=== PATIENT | female | born 1930 | race Caucasian/White ===

== ENCOUNTER → 2016-12-06 | Outpatient (CLI) | payer MEDICARE ==
[~2016-12-06] MED LIST: ASPI325T PO; CARA1TAB2 PO; CYMB60CA3 PO; LIPI80TA PO; LOSA100T36 PO; MELO15TA4 PO; MIRA33504 PO; NEXI40CA PO; POTA10CA PO; TRAM50TA2 PO
--- NOTE | 2016-12-07 21:55 | REP ---
PA and lateral chest 12/06/2016 Indication: Cough, shortness of breath Comparison: PA and lateral chest 09/03/2016 Findings: The cardiomediastinal silhouette is of normal size. There is tortuosity and ectasia of the thoracic aorta with atherosclerotic changes in the region of the aortic knob. The lungs are without focal consolidation , alveolar infiltrate or pleural effusion and there is however a small amount of bibasilar fibrotic scarring. Moderate degenerative changes are present within the lumbar spine. Surgical clips are present within the epigastric region Impression: COPD with ectatic thoracic aorta with atherosclerotic changes. No acute cardiopulmonary process. Bibasilar fibrotic scarring Signed by Kenia Joseph MD 12/07/2016 09:47 P
== END ==
LOC: M LRY 14:08
PROVIDERS: ATTEND Physician Assistant
DX: J44.9 Chronic obstructive pulmonary disease, unspecified (principal); J98.4 Other disorders of lung
CPT/HCPCS: 71020; 94640; G0463

== ENCOUNTER → 2017-02-04 | Outpatient (REF) | payer MEDICARE ==
[2017-02-04 11:52] LABS: MEAN CORPUSCULAR HEMOGLOBIN 27.6 pg (27.0-33.0); MEAN CORPUSCULAR HGB CONC 32.9 g/dl (32.0-36.5); MEAN CORPUSCULAR VOLUME 83.9 fl (80.0-96.0); RED CELL DISTRIBUTION WIDTH 15.3 % (11.5-14.5); WHITE BLOOD COUNT 6.8 K/mm3 (4.0-10.0)
[2017-02-04 12:04] LABS: ALBUMIN 3.5 GM/DL (3.2-5.2); ALBUMIN/GLOBULIN RATIO 1.17 (1.00-1.93); BILIRUBIN,TOTAL 0.5 MG/DL (0.2-1.0); CALCIUM LEVEL 9.4 MG/DL (8.8-10.2); CREATININE FOR GFR 1.55 MG/DL (0.55-1.02); GLOMERULAR FILTRATION RATE 33.7 (>32); POTASSIUM SERUM 4.4 MEQ/L (3.5-5.1); TOTAL PROTEIN 6.5 GM/DL (6.4-8.2)
== END ==
LOC: M SFHCLERA 08:05
PROVIDERS: ATTEND Family Medicine
DX: N18.3 Chronic kidney disease, stage 3 (moderate) (principal); E78.2 Mixed hyperlipidemia

== ENCOUNTER 2017-03-03 11:02 | Inpatient (IN) | payer MEDICARE ==
[~2017-03-03] VITALS: Ht 152.4 cm; Wt 77.3 kg
[2017-03-03] MEDS ORDERED: PANT40TA2 (11:16)
[2017-03-03] MEDS ORDERED: COZA50TA PO (11:16)
[2017-03-03] MEDS ORDERED: methylPREDNISolone INJ 125 MG/2 ML VIAL (J2930) IV ONE (11:45)
[2017-03-03] MEDS ORDERED: IPRATROPIUM 0.5MG/ALBUTEROL 2.5MG INH SOL UD 3ML (DUONEB)(J7620) NEB ONE (11:45)
[2017-03-03 13:14] LABS: BASO % 0.3 % (0.0-1.0); LARGE UNSTAINED CELL # 0.2 K/mm3 (0.0-0.4); LARGE UNSTAINED CELL % 3.8 % (0.0-4.0); LYMPH # 2.3 K/mm3 (1.5-4.5); LYMPH % 41.6 % (24.0-44.0); MEAN CORPUSCULAR HEMOGLOBIN 26.8 pg (27.0-33.0); MEAN CORPUSCULAR HGB CONC 31.8 g/dl (32.0-36.5); MEAN CORPUSCULAR VOLUME 84.3 fl (80.0-96.0); MONO # 0.3 K/mm3 (0.0-0.8); MONO % 5.9 % (0.0-5.0); NEUTROPHILS # 2.4 K/mm3 (1.8-7.7); NEUTROPHILS % 47.4 % (36.0-66.0); PLATELET COUNT, AUTOMATED 150 k/mm3 (150-450); RED CELL DISTRIBUTION WIDTH 15.2 % (11.5-14.5); WHITE BLOOD COUNT 5.1 K/mm3 (4.0-10.0)
[2017-03-03 13:36] LABS: ALBUMIN 3.2 GM/DL (3.2-5.2); ALBUMIN/GLOBULIN RATIO 1.14 (1.00-1.93); BILIRUBIN,DIRECT 0.1 MG/DL (0.0-0.2); BILIRUBIN,TOTAL 0.4 MG/DL (0.2-1.0)
[2017-03-03 13:39] LABS: CALCIUM LEVEL 8.2 MG/DL (8.8-10.2); CREATININE FOR GFR 1.39 MG/DL (0.55-1.02); GLOMERULAR FILTRATION RATE 38.2 (>32); POTASSIUM SERUM 4.3 MEQ/L (3.5-5.1)
--- NOTE | 2017-03-03 13:42 | REP ---
CHEST, TWO VIEWS: HISTORY: Dyspnea. COMPARISON: 12/06/2016. A diffuse increase in interstitial markings is present in the lungs. The heart is normal in size. The pulmonary vasculature is normal in appearance. Degenerative change is present in the thoracic spine. IMPRESSION: COPD. Signed by Juan Ramon Torres MD 03/03/2017 01:54 P
[2017-03-03] MEDS ORDERED: VITA100066 PO (15:39)
[2017-03-03] MEDS ORDERED: PANT40TA2 PO (15:39)
[2017-03-03] MEDS ORDERED: METO12TA PO (15:39)
[2017-03-03] MEDS ORDERED: EYECAP PO (15:40)
[2017-03-03] MEDS ORDERED: OCUVCAP5 PO (15:41)
[2017-03-03] MEDS ORDERED: FUROSEMIDE 20 MG TAB PO ONE (16:00)
[2017-03-03 18:12] VITALS: BP 141/63
[2017-03-03] MEDS ORDERED: IPRATROPIUM 0.5MG/ALBUTEROL 2.5MG INH SOL UD 3ML (DUONEB)(J7620) NEB PRN (19:30)
[2017-03-03] MEDS: IPRATROPIUM 0.5MG/ALBUTEROL 2.5MG INH SOL UD 3ML (DUONEB)(J7620) NEB SCH (20:00)
--- NOTE | 2017-03-03 20:11 | HPE ---
DATE OF ADMISSION: 03/03/2017 PRIMARY CARE PROVIDER: Dr. Chavis ATTENDING PROVIDER: Dr. Licona HISTORY OF PRESENT ILLNESS: The patient is an 87-year-old female with history of severe aortic stenosis, mitral valve stenosis, grade 1 diastolic dysfunction, hypertension, hyperlipidemia, gastroesophageal reflux disease, arthritis, presented to the emergency room with her daughter complaining of shortness of breath that had started yesterday and gotten progressively worse. This morning shortness of breath worse with exertion. Positive orthopnea and dry cough. The patient denied any fevers or chest pain and denied any shortness of breath while sitting in bed. In the emergency room the patient underwent a chest x-ray which showed chronic obstructive pulmonary disease (COPD). She received one dose of Solu-Medrol 125 mg and a breathing treatment and the patient stated she feels much better right now. Hospitalist was called for the admission. REVIEW OF SYSTEMS: 12-point review of systems obtained all which was negative except for those mentioned above. PAST MEDICAL HISTORY: Significant for severe aortic stenosis, mitral valve stenosis, hypertension, hyperlipidemia, gastroesophageal reflux disease, arthritis, stage III chronic kidney disease, chronic depression, spinal stenosis, and bowel incontinence. PAST SURGICAL HISTORY: Significant for lumbar laminectomy, cholecystectomy, hysterectomy, abdominal aortic aneurysm (AAA) repair. ALLERGIES: Patient is allergic to CITALOPRAM, LISINOPRIL, VENLAXAFINE, NEFAZODONE, CARBAMAZEPINE and WELLBUTRIN. SOCIAL HISTORY: The patient denies alcohol or tobacco use. Lives at home alone in an elderly community, [place]. FAMILY HISTORY: Noncontributory. HOME MEDICATIONS: Include: - aspirin 325 mg by mouth daily - Lipitor 80 mg at bedtime - vitamin D 1000 units by mouth daily - Cymbalta 60 mg by mouth daily - Cozaar 50 mg by mouth daily - meloxicam 50 mg by mouth daily - metoprolol 25 mg by mouth twice a day - multivitamin one capsule by mouth twice a day - pantoprazole 40 mg by mouth daily - MiraLax 17 grams by mouth as needed for constipation - Carafate 1 gram by mouth four times a day PHYSICAL FINDINGS: Vital signs on admission: Temperature 97.8, pulse 76, respiratory rate 18, blood pressure is 147/74, pulse oximetry 96% on room air. HEENT: Pupils equal, round, reactive to light and accommodation. Neck: Supple. No jugular venous distention (JVD). Lungs: Some crackles heard at bilateral lung bases, diminished breath sounds bilaterally. Cardiac: Regular rate and rhythm. Abdomen: Soft, nontender, nondistended. Extremities: No clubbing, cyanosis or edema. Neurologic: Cranial nerves II-XII grossly intact. No focal deficits. WBCs 5.1, hemoglobin 10.2, hematocrit 32.1, platelet count 150. Sodium 144, potassium 4.3, chloride 109, BUN 28, creatinine 1.39, troponin 0.12, repeat was 0.09, BNP 1160. IMAGING STUDIES: As above. ASSESSMENT/PLAN: 1. Shortness of breath likely secondary to severe aortic stenosis plus or minus chronic obstructive pulmonary disease (COPD). The patient had an echocardiogram done February of last year which showed severe aortic stenosis, diastolic congestive heart failure. We will give the patient one dose of IV Lasix. Monitor intake and output and daily weights. We will defer to primary provider for cardiac involvement. The patient normally sees Dr. Gomes outpatient. She is not normally on diuretics. The patient does not appear to be fluid overloaded. Elevated BNP may be in part due to chronic kidney disease. Patient is currently saturating 96% on room air. She had received one dose of Solu-Medrol 125 mg in the emergency room. We will continue patient's DuoNebs. 2. History of severe aortic stenosis per last echo. 3. Diastolic congestive heart failure. Does not appear to be grossly overloaded at this time. 4. History of hypertension. Continue the patient's home medication. 5. Hyperlipidemia. Continue the patient's home medication. 6. Deep venous thrombosis (DVT) prophylaxis. Thromboembolism deterrents (TEDs) and sequentials while in bed.
[2017-03-03] MEDS: METOPROLOL TART 25 MG TABLET PO SCH (21:00)
[2017-03-03] MEDS: SUCRALFATE 1 GM TAB PO SCH (21:00)
[2017-03-03 23:59] VITALS: BP 112/59
[2017-03-04] MEDS: SUCRALFATE 1 GM TAB PO SCH ×5 (00:04→21:54)
[2017-03-04] MEDS: ATORVASTATIN 20 MG TAB PO SCH ×2 (00:05→21:54)
[2017-03-04] MEDS ORDERED: SLF 3 ML SYR IV PRN (00:45)
[2017-03-04] MEDS: OCUVITE 1 TAB PO SCH ×3 (01:19→21:53)
[2017-03-04] MEDS: IPRATROPIUM 0.5MG/ALBUTEROL 2.5MG INH SOL UD 3ML (DUONEB)(J7620) NEB SCH ×4 (02:11→20:25)
[2017-03-04 04:00] VITALS: BP 108/58
--- NOTE | 2017-03-04 04:57 | ECGEPIP ---
Stationary ECG Study [facility] - ED Test Date: 2017-03-03 Pat Name: NI BAILON Department: Room: - Gender: F [employer]: ino : 1930 Requested By: Bryce Moser PA-C Order Number: [id number] Reading MD: Marc Huffman Measurements Intervals [place] Rate: 70 P: 39 NV: 119 QRS: 49 QRSD: 104 T: 30 QT: 381 QTc: 413 Interpretive Statements SINUS RHYTHM WITH SHORT NV INTERVAL NONSPECIFIC ST & T-WAVE ABNORMALITY POSSIBLE PRIOR INFERIOR INFARCT SIMILAR TO 09/03/16 Electronically Signed On 03-04-2017 4:57:36 EDT by Marc Huffman
[2017-03-04 05:46] LABS: MEAN CORPUSCULAR HEMOGLOBIN 27.4 pg (27.0-33.0); MEAN CORPUSCULAR HGB CONC 32.6 g/dl (32.0-36.5); RED CELL DISTRIBUTION WIDTH 15.4 % (11.5-14.5); WHITE BLOOD COUNT 4.5 K/mm3 (4.0-10.0)
[2017-03-04] MEDS: SLF 3 ML SYR IV SCH ×3 (05:49→21:54)
[2017-03-04 06:00] LABS: ALBUMIN 2.7 GM/DL (3.2-5.2); ALBUMIN/GLOBULIN RATIO 0.84 (1.00-1.93); BILIRUBIN,TOTAL 0.3 MG/DL (0.2-1.0); CALCIUM LEVEL 8.2 MG/DL (8.8-10.2); CREATININE FOR GFR 1.51 MG/DL (0.55-1.02); GLOMERULAR FILTRATION RATE 34.7 (>32); TOTAL PROTEIN 5.9 GM/DL (6.4-8.2)
[2017-03-04 07:45] VITALS: BP 120/55
[2017-03-04] MEDS: DULoxetine 30 MG CAP (CYMBALTA) PO SCH (08:50)
[2017-03-04] MEDS: METOPROLOL TART 25 MG TABLET PO SCH ×2 (08:50→21:54)
[2017-03-04] MEDS: PANTOPRAZOLE 40MG TAB (PROTONIX) PO SCH (08:50)
[2017-03-04] MEDS: LOSARTAN 50 MG TAB PO SCH (08:50)
[2017-03-04] MEDS ORDERED: MELOXICAM (MOBIC) 7.5 MG TAB PO SCH (09:00)
[2017-03-04] MEDS ORDERED: FUROSEMIDE 40 MG/4 ML VIAL (J1940) IV SCH (09:00)
[2017-03-04] MEDS ORDERED: ASPIRIN 325 MG TAB PO SCH (09:00)
[2017-03-04 12:20] VITALS: BP 118/60
[2017-03-04 16:00] VITALS: BP 123/61
[2017-03-04] MEDS: LevoFLOXacin 750 MG TABLET PO SCH (17:05)
[2017-03-04] MEDS: MIRALAX *UNIT DOSE* 17GM PACKET PO PRN (17:05)
[2017-03-04] MEDS ORDERED: ASPIRIN 81 MG CHEW TABLET PO ONE (18:00)
--- NOTE | 2017-03-04 18:08 | IPNPDOC ---
Subjective Date Seen The patient was seen on 03/04/17. Subjective Chief Complaint/HPI The patient is a 87-year-old female admitted with a reason for visit of Shortness Of Breath. Events since last encounter Patient reports that she continues to have some dizziness, overall fatigue, and occasional lightheadedness. Her breathing has improved, however she continues to have cough and significant short of breath with any exertion. Patient has a history of rectovaginal fistula, bleeding hemorrhoids, and also states that she has had frequent black tarry stools. She is currently on a full strength aspirin daily for stroke prevention. However, she is also on Coumadin. Constitutional: Reports: Fatigue, Denies: Chills, Fever, Malaise, Night Sweats Skin: Denies: Lesions, Rash Pulmonary: Reports: Cough, Dyspnea, Denies: Pleuritic Chest Pain Cardiovascular: Reports: Lt Headedness, Denies: Chest Pain, Orthopnea, Palpitations Gastrointestinal: Reports: Melena, Denies: Abdominal Pain, Constipation, Diarrhea, Nausea, Vomiting Objective Physical Examination General Exam: Positive: Alert, Cooperative, No Acute Distress Eye Exam: Positive: Conjunctiva & lids normal, PERRLA ENT Exam: Positive: Atraumatic, Mucous membr. moist/pink Neck Exam: Positive: Supple, Negative: JVD, thyromegaly Chest Exam: Positive: Normal air movement, Rhonchi, Wheezing, Negative: Rales Heart Exam: Positive: Murmurs (3/6 pansystolic murmur radiating to carotids), Normal S1, Normal S2, Rate Normal, Regular Rhythm Abdomen Exam: Positive: Normal bowel sounds, Soft, Negative: Hepatospenomegaly, Tenderness Extremity Exam: Positive: Normal pulses, Negative: Clubbing, Cyanosis, Edema Skin Exam: Negative: Nl turgor and temperature (decreased skin turgor), Rash Psych Exam: Positive: Mental status NL, Mood NL, Oriented x 3 Assessment /Plan Problems (1) Upper GI bleeding Status: Acute Problem Text: Likely due to chronic full-strength aspirin and Mobic. Unsure why patient is on this medication, as she has renal impairment. Patient is currently on Protonix 40 mg daily, sucralfate. Will monitor for active bleeding , follow hemoglobins, and discontinue full-strength aspirin. Patient wishes to continue low-dose baby aspirin for stroke prevention. Discussed risks versus benefits of discontinuing aspirin therapy for stroke prevention. Indicated that further anticoagulation in the setting of upper GI bleeding is not indicated. - No NSAIDs - Reduce full-strength aspirin to daily baby aspirin -Monitor her hemoglobin -Transfuse 1 unit packed red blood cells, as patient blood 10, has coronary risk factors, and is currently symptomatic -Consider consulting surgery for endoscopy, as GI is not in-house for the remainder of the week; patient is not appreciably interested in doing endoscopy and definitely does not want to do a colonoscopy. (2) Acute blood loss anemia Status: Acute Problem Text: Transfusing 1 unit packed red blood cells as above -Anemia labs -Stool occult blood (3) Shortness of breath Status: Acute Problem Text: Review chest x-ray with patient, which does not show consistent signs of severe pulmonary disease. She has no flattening of the diaphragms, no hyperexpansion of the lung. There is some increase in pulmonary vascular congestion. There is possible infiltrate of the right middle lobe, obscuring the right heart border. Given possible infiltrate seen on chest x-ray, will start her empirically on Levaquin. She is currently on prednisone. 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 Patient is seen by Dr. Gomes. We will evaluate for worsening valvular heart disease or pulmonary hypertension. -Echocardiogram with Dr. Gomes (6) History of stroke Status: Chronic Problem Text: Discussed risks and benefits of stroke prevention with daily full -strength aspirin. After reviewing her home medications, she is on Mobic 15 mg daily, which may be inducing upper GI bleeding, and should not be used with her renal impairment. As I did not know of her chronic use of nonsteroidal drugs when I discussed discontinuing her full-strength aspirin, we may want to revisit this. For the time being, holding full-strength aspirin is appropriate, as full-strength aspirin causes GI side effects similar to NSAIDs. -Baby aspirin for now -Revisit full-strength aspirin after GI bleed resolves -Continue high-dose statin (7) Hypertension Status: Chronic Problem Text: Blood pressures are currently controlled. (8) Hyperlipidemia Status: Chronic Problem Text: Continuing high-dose statin Plan/VTE VTE Prophylaxis Ordered?: Yes (sequential pression device) VTE Exclusion Pharmacological: Active Bleeding Plan Monitor hemoglobin, echocardiogram for worsening valvular heart disease, transfuse 1 unit packed red blood cells due to hemoglobin below 10 in high risk vascular patient with current symptoms. We'll plan for discharge home on PPI, sucralfate, and daily baby aspirin for stroke prevention. She will discuss resuming full dose aspirin with her primary provider pending no recurrence of her gastrointestinal bleeding after stopping Mobic. VS, I&O, 24H, Fishbone Vital Signs/I&O Vital Signs Date Time Temp Pulse Resp B/P Pulse Ox O2 Delivery O2 Flow Rate FiO2 03/04/17 16:00 98.8 90 22 123/61 96 Room Air 03/03/17 15:00 3 92 I&O- Last 24 Hours up to 6 AM 03/04/17 06:00 Intake Total 220 ml Output Total 300 ml Balance -80 ml Laboratory Data 24H LABS Laboratory Tests 2 03/04/17 01:03: Creatine Kinase MB 1.0, Creatine Kinase MB Relative Index 1.49, Total Creatine Kinase 67, Troponin I 0.06# 03/04/17 05:34: Blood Urea Nitrogen 32H, Creatinine 1.51H, Sodium Level 142, Potassium Level 4.0 , Chloride Level 108H, Carbon Dioxide Level 27, Calcium Level 8.2L, Aspartate Amino Transf (AST/SGOT) 9L, Alanine Aminotransferase (ALT/SGPT) 15, Alkaline Phosphatase 102, Total Bilirubin 0.3, Total Protein 5.9L, Albumin 2.7L, Albumin/ Globulin Ratio 0.84L, Anion Gap 7L, Glomerular Filtration Rate 34.7 03/04/17 09:01: Creatine Kinase MB 1.0, Creatine Kinase MB Relative Index 1.53, Total Creatine Kinase 65, Troponin I 0.07 CBC/BMP Laboratory Tests 03/04/17 05:34 Calcium Level 8.2 L, Aspartate Amino Transf (AST/SGOT) 9 L, Alanine Aminotransferase (ALT/SGPT) 15, Alkaline Phosphatase 102, Total Bilirubin 0.3, Total Protein 5.9 L, Albumin 2.7 L, Red Blood Count 3.35 L, Mean Corpuscular Volume 84.0, Mean Corpuscular Hemoglobin 27.4, Mean Corpuscular Hemoglobin Concent 32.6, Red Cell Distribution Width 15.4 H Microbiology Microbiology 03/03/17 Blood Culture - Preliminary, Resulted No growth after 24 hours . All specim... IVONNE TORO MD Mar 04, 2017 18:08
[2017-03-04] MEDS: ACETAMINOPHEN TAB 650MG DOSE (2X325MG) PO PRN (18:18)
[2017-03-04 20:00] VITALS: BP 122/73
[2017-03-04 23:59] VITALS: BP 105/64
[2017-03-05] MEDS: IPRATROPIUM 0.5MG/ALBUTEROL 2.5MG INH SOL UD 3ML (DUONEB)(J7620) NEB SCH ×4 (02:13→21:09)
[2017-03-05] MEDS: SLF 3 ML SYR IV SCH ×3 (06:00→21:24)
[2017-03-05 06:08] LABS: MEAN CORPUSCULAR HEMOGLOBIN 27.1 pg (27.0-33.0); MEAN CORPUSCULAR HGB CONC 31.9 g/dl (32.0-36.5); MEAN CORPUSCULAR VOLUME 84.8 fl (80.0-96.0); RED CELL DISTRIBUTION WIDTH 15.1 % (11.5-14.5); RETIC HEMOGLOBIN CONTENT CHr 29.4 PG (24-36); RETICULOCYTE % ADVIA2120 1.8 % (0.5-1.5)
[2017-03-05 06:25] LABS: ALBUMIN 2.8 GM/DL (3.2-5.2); ALBUMIN/GLOBULIN RATIO 0.78 (1.00-1.93); BILIRUBIN,TOTAL 0.5 MG/DL (0.2-1.0); CALCIUM LEVEL 8.5 MG/DL (8.8-10.2); CREATININE FOR GFR 1.89 MG/DL (0.55-1.02); GLOMERULAR FILTRATION RATE 26.8 (>32); PERCENT SATURATION 16.3 % (13.2-37.4); POTASSIUM SERUM 4.7 MEQ/L (3.5-5.1); TOTAL PROTEIN 6.4 GM/DL (6.4-8.2)
[2017-03-05 07:45] VITALS: BP 131/60
[2017-03-05] MEDS: OCUVITE 1 TAB PO SCH ×2 (08:48→21:24)
[2017-03-05] MEDS: SUCRALFATE 1 GM TAB PO SCH ×4 (08:49→21:24)
[2017-03-05] MEDS: DULoxetine 30 MG CAP (CYMBALTA) PO SCH (08:49)
[2017-03-05] MEDS: PANTOPRAZOLE 40MG TAB (PROTONIX) PO SCH (08:49)
[2017-03-05] MEDS: LOSARTAN 50 MG TAB PO SCH (08:49)
[2017-03-05] MEDS: ASPIRIN 81 MG ENTERIC TAB PO SCH (08:49)
[2017-03-05] MEDS: METOPROLOL TART 25 MG TABLET PO SCH ×2 (08:49→21:24)
[2017-03-05] MEDS: ACETAMINOPHEN TAB 650MG DOSE (2X325MG) PO PRN (08:49)
[2017-03-05] MEDS: predniSONE 20 MG TAB PO SCH (08:49)
--- NOTE | 2017-03-05 09:18 | IPNPDOC ---
Subjective Date Seen The patient was seen on 03/05/17. Subjective Chief Complaint/HPI The patient is a 87-year-old female admitted with a reason for visit of Shortness Of Breath. Events since last encounter Pt c/p nasal congestion, cough, ears popping and cracking, when she yawns or opens her mouth wide, chews. Her breathing is not much estefanía.r General: Denies: Fatigue Constitutional: Denies: Chills, Fever ENT: Reports: Post Nasal Drip, Sinus Congestion Pulmonary: Reports: Cough, Dyspnea Cardiovascular: Denies: Chest Pain, Palpitations Gastrointestinal: Denies: Diarrhea, Nausea, Vomiting Musculoskeletal: Denies: Neck Pain Neurological: Reports: Weakness Psych: Reports: Mood Normal Objective Physical Examination General Exam: Positive: Alert, Cooperative, No Acute Distress ENT Exam: Positive: Atraumatic, Mucous membr. moist/pink Neck Exam: Positive: Supple, Negative: JVD, thyromegaly Chest Exam: Positive: Diminished, Negative: Rales, Rhonchi, Wheezing Heart Exam: Positive: Murmurs (3/6 pansystolic murmur radiating to carotids), Normal S1, Normal S2, Rate Normal, Regular Rhythm Abdomen Exam: Positive: Normal bowel sounds, Soft, Negative: Hepatospenomegaly, Tenderness Extremity Exam: Positive: Normal pulses, Negative: Clubbing, Cyanosis, Edema Skin Exam: Negative: Nl turgor and temperature (decreased skin turgor), Rash Psych Exam: Positive: Mental status NL, Mood NL, Oriented x 3 Assessment /Plan Problems (1) Upper GI bleeding Status: Acute Problem Text: 03/05 - Rec 1 unit pRBC yest, Hgb increased from 9.2 to 10.6, Mobic has been stopped, ASA reduced from 325 mg to 81 mg daily, cont with Protonix, Carafate, pt not really eager to under endoscopy. Will monitor Hgb. 03/04 Likely due to chronic full-strength aspirin and Mobic. Unsure why patient is on this medication, as she has renal impairment. Patient is currently on Protonix 40 mg daily, sucralfate. Will monitor for active bleeding, follow hemoglobins, and discontinue full-strength aspirin. Patient wishes to continue low-dose baby aspirin for stroke prevention. Discussed risks versus benefits of discontinuing aspirin therapy for stroke prevention. Indicated that further anticoagulation in the setting of upper GI bleeding is not indicated. - No NSAIDs - Reduce full-strength aspirin to daily baby aspirin -Monitor her hemoglobin -Transfuse 1 unit packed red blood cells, as patient blood 10, has coronary risk factors, and is currently symptomatic -Consider consulting surgery for endoscopy, as GI is not in-house for the remainder of the week; patient is not appreciably interested in doing endoscopy and definitely does not want to do a colonoscopy. (2) Acute blood loss anemia Status: Acute Problem Text: 03/05 - Fe 53, Ferritin pending, TIBC 326, Hgb stable after 1 unit pRBCs, hemoccult ordered, not yet obtained. 03/04 Transfusing 1 unit packed red blood cells as above -Anemia labs -Stool occult blood (3) Shortness of breath Status: Acute Problem Text: 03/05 - Levaquin D2, Pred 40 mg, will need taper. 03/04 Review chest x-ray with patient, which does not show consistent signs of severe pulmonary disease. She has no flattening of the diaphragms, no hyperexpansion of the lung. There is some increase in pulmonary vascular congestion. There is possible infiltrate of the right middle lobe, obscuring the right heart border. Given possible infiltrate seen on chest x-ray, will start her empirically on Levaquin. She is currently on prednisone. 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 Patient is seen by Dr. Gomes. We will evaluate for worsening valvular heart disease or pulmonary hypertension. -Echocardiogram with Dr. Gomes (6) History of stroke Status: Chronic Problem Text: Discussed risks and benefits of stroke prevention with daily full -strength aspirin. After reviewing her home medications, she is on Mobic 15 mg daily, which may be inducing upper GI bleeding, and should not be used with her renal impairment. As I did not know of her chronic use of nonsteroidal drugs when I discussed discontinuing her full-strength aspirin, we may want to revisit this. For the time being, holding full-strength aspirin is appropriate, as full-strength aspirin causes GI side effects similar to NSAIDs. -Baby aspirin for now -Revisit full-strength aspirin after GI bleed resolves -Continue high-dose statin (7) Hypertension Status: Chronic Problem Text: Blood pressures are currently controlled. (8) Hyperlipidemia Status: Chronic Problem Text: Continuing high-dose statin (9) CKD (chronic kidney disease) stage 3, GFR 30-59 ml/min Status: Chronic Problem Specific Plan: Monitor Clinically Problem Text: Scr 1.89 today, increased from 1.51 yesterday, baseline appears to be 1.5-1.6, monitor. Plan/VTE VTE Prophylaxis Ordered?: Yes (sequential pression device) VTE Exclusion Pharmacological: Active Bleeding Plan Therapy: PT Anticipated Discharge: Home (plan for home when ready.) Advance Directives: DNR transfer to [facility] Family Medicine Attending Note: I saw and examined Ms. Mckeon today; I d/w JAZMÍN Feliciano and I agree with her note as above. I had a long discussion today with Ms. Mckeon and her daughters regarding etiology of her SOB. SOB is much improved today but she still feels tired and SOB with ambulation to the bathroom. I do think some of her SOB was likely anemia; at this point, she states she would be willing to undergo EGD if she H/H continues to deteriorate and in addition, she has had some difficulty swallowing in the past few weeks and may need an EGD regardless. However, this could be arranged as an outpatient if H/H remains stable. She is being treated for a respiratory infection with levaquin and prednisone, though her CXR is not very impressive - I d/w her that we will continue this treatment but this may not be the cause of her acute dyspnea. She also relates a one-year h/o progressively worsening SOB , which I think is likely related to her aortic stenosis - apparently, she and her family were not aware of this diagnosis, although she does state that she discussed it with Dr. Gomes and she declined valve replacement surgery due to not wanting a prolonged hospital stay; at any rate, I am not sure that she is a very good surgical candidate for a such a surgery. I think that much of her underlying SOB and fatigue is related to , and I discussed that there is no alternative treatment to valve replacement and that she will continue to decline - she verbalized understanding of this. Repeat Echo is pending. (KES) VS, I&O, 24H, Fishbone Vital Signs/I&O Vital Signs Date Time Temp Pulse Resp B/P Pulse Ox O2 Delivery O2 Flow Rate FiO2 03/05/17 08:49 85 131/60 03/05/17 08:25 Room Air 03/05/17 07:45 98.4 22 99 03/03/17 15:00 3 92 I&O- Last 24 Hours up to 6 AM 03/05/17 06:00 Intake Total 1540 ml Output Total 700 ml Balance 840 ml Laboratory Data 24H LABS Laboratory Tests 2 03/05/17 05:57: Absolute Reticulocyte Count 72, Blood Urea Nitrogen 45H, Creatinine 1.89H, Sodium Level 144, Potassium Level 4.7, Chloride Level 108H, Carbon Dioxide Level 30, Calcium Level 8.5L, Aspartate Amino Transf (AST/SGOT) 11L, Alanine Aminotransferase (ALT/SGPT) 17, Alkaline Phosphatase 106, Total Bilirubin 0.5#, Total Protein 6.4, Albumin 2.8L, Albumin/Globulin Ratio 0.78L, Anion Gap 6L, Glomerular Filtration Rate 26.8L, Iron Level 53, Percent Reticulocyte Count 1.80H, Reticulocyte Hgb Content (CHr) 29.4, Total Iron Binding Capacity 326, Transferrin % Saturation 16.3 CBC/BMP Laboratory Tests 03/05/17 05:57 Calcium Level 8.5 L, Aspartate Amino Transf (AST/SGOT) 11 L, Alanine Aminotransferase (ALT/SGPT) 17, Alkaline Phosphatase 106, Total Bilirubin 0.5 # , Total Protein 6.4, Albumin 2.8 L, Red Blood Count 3.91 L, Mean Corpuscular Volume 84.8, Mean Corpuscular Hemoglobin 27.1, Mean Corpuscular Hemoglobin Concent 31.9 L, Red Cell Distribution Width 15.1 H Microbiology Microbiology 03/03/17 Blood Culture - Preliminary, Resulted No growth after 24 hours . All specim... ANDERSON TELLEZ PA-C Mar 05, 2017 09:18 SANDIP TINSLEY MD Mar 05, 2017 15:02
[2017-03-05 16:00] VITALS: BP 138/63
[2017-03-05 19:06] VITALS: BP 140/68
[2017-03-05] MEDS: MIRALAX *UNIT DOSE* 17GM PACKET PO PRN (21:23)
[2017-03-05] MEDS: ATORVASTATIN 20 MG TAB PO SCH (21:23)
[2017-03-05 23:10] VITALS: BP 140/66
[2017-03-06] MEDS: IPRATROPIUM 0.5MG/ALBUTEROL 2.5MG INH SOL UD 3ML (DUONEB)(J7620) NEB SCH ×4 (02:11→20:03)
[2017-03-06 04:29] VITALS: BP 148/77
[2017-03-06 05:56] LABS: MEAN CORPUSCULAR HEMOGLOBIN 27.3 pg (27.0-33.0); MEAN CORPUSCULAR HGB CONC 31.9 g/dl (32.0-36.5); MEAN CORPUSCULAR VOLUME 85.7 fl (80.0-96.0); RED CELL DISTRIBUTION WIDTH 15.1 % (11.5-14.5); WHITE BLOOD COUNT 7.8 K/mm3 (4.0-10.0)
[2017-03-06] MEDS: SUCRALFATE 1 GM TAB PO SCH ×4 (06:05→20:46)
[2017-03-06] MEDS: SLF 3 ML SYR IV SCH ×3 (06:05→20:47)
[2017-03-06 06:26] LABS: ALBUMIN 2.8 GM/DL (3.2-5.2); ALBUMIN/GLOBULIN RATIO 0.8 (1.00-1.93); BILIRUBIN,TOTAL 0.3 MG/DL (0.2-1.0); CALCIUM LEVEL 8.3 MG/DL (8.8-10.2); CREATININE FOR GFR 1.6 MG/DL (0.55-1.02); GLOMERULAR FILTRATION RATE 32.5 (>32); POTASSIUM SERUM 4.3 MEQ/L (3.5-5.1); TOTAL PROTEIN 6.3 GM/DL (6.4-8.2)
[2017-03-06 07:30] VITALS: BP 139/65
[2017-03-06] MEDS: ASPIRIN 81 MG ENTERIC TAB PO SCH (08:49)
[2017-03-06] MEDS: METOPROLOL TART 25 MG TABLET PO SCH ×2 (08:49→20:46)
[2017-03-06] MEDS: predniSONE 20 MG TAB PO SCH (08:49)
[2017-03-06] MEDS: LOSARTAN 50 MG TAB PO SCH (08:49)
[2017-03-06] MEDS: OCUVITE 1 TAB PO SCH ×2 (08:49→20:46)
[2017-03-06] MEDS: DULoxetine 30 MG CAP (CYMBALTA) PO SCH (08:49)
[2017-03-06] MEDS: PANTOPRAZOLE 40MG TAB (PROTONIX) PO SCH (08:49)
--- NOTE | 2017-03-06 09:12 | IPNPDOC ---
Subjective Date Seen The patient was seen on 03/06/17. Subjective Chief Complaint/HPI The patient is a 87-year-old female admitted with a reason for visit of Shortness Of Breath. Events since last encounter Pt this morning with less congestion although she does continue to cough. She has not had a BM since admission either. She is more willing to consider endoscopy if needed after speaking with Dr Licona. General: Reports: Fatigue Constitutional: Denies: Chills, Fever ENT: Denies: Head Aches Pulmonary: Reports: Cough, Dyspnea Cardiovascular: Denies: Chest Pain, Palpitations Gastrointestinal: Denies: Diarrhea, Nausea, Vomiting Neurological: Reports: Weakness Psych: Reports: Mood Normal Objective Physical Examination General Exam: Positive: Alert, Cooperative, No Acute Distress ENT Exam: Positive: Atraumatic, Mucous membr. moist/pink Neck Exam: Positive: Supple, Negative: JVD, thyromegaly Chest Exam: Positive: Diminished, Negative: Rales, Rhonchi, Wheezing Heart Exam: Positive: Murmurs (3/6 pansystolic murmur radiating to carotids), Normal S1, Normal S2, Rate Normal, Regular Rhythm Abdomen Exam: Positive: Normal bowel sounds, Soft, Negative: Hepatospenomegaly, Tenderness Extremity Exam: Positive: Normal pulses, Negative: Clubbing, Cyanosis, Edema Skin Exam: Negative: Nl turgor and temperature (decreased skin turgor), Rash Psych Exam: Positive: Mental status NL, Mood NL, Oriented x 3 Assessment /Plan Problems (1) Upper GI bleeding Status: Acute Problem Text: 03/06 - Hgb 9.9 today, down from 10.6 yesterday. Cont with Protonix, Carafate. Pt more willing to consider EGD if needed, although her ECHO results need to be noted before this is considered as I would expect her to be high risk for anesthesias assoc with with . 03/05 - Rec 1 unit pRBC yest, Hgb increased from 9.2 to 10.6, Mobic has been stopped, ASA reduced from 325 mg to 81 mg daily, cont with Protonix, Carafate, pt not really eager to under endoscopy. Will monitor Hgb. 03/04 Likely due to chronic full-strength aspirin and Mobic. Unsure why patient is on this medication, as she has renal impairment. Patient is currently on Protonix 40 mg daily, sucralfate. Will monitor for active bleeding, follow hemoglobins, and discontinue full-strength aspirin. Patient wishes to continue low-dose baby aspirin for stroke prevention. Discussed risks versus benefits of discontinuing aspirin therapy for stroke prevention. Indicated that further anticoagulation in the setting of upper GI bleeding is not indicated. - No NSAIDs - Reduce full-strength aspirin to daily baby aspirin -Monitor her hemoglobin -Transfuse 1 unit packed red blood cells, as patient blood 10, has coronary risk factors, and is currently symptomatic -Consider consulting surgery for endoscopy, as GI is not in-house for the remainder of the week; patient is not appreciably interested in doing endoscopy and definitely does not want to do a colonoscopy. (2) Acute blood loss anemia Status: Acute Problem Text: 03/05 - Fe 53, Ferritin pending, TIBC 326, Hgb stable after 1 unit pRBCs, hemoccult ordered, not yet obtained. 03/04 Transfusing 1 unit packed red blood cells as above -Anemia labs -Stool occult blood (3) Shortness of breath Status: Acute Problem Text: 03/06 - Levaquin D3, will reduce Pred today. 03/05 - Levaquin D2, Pred 40 mg, will need taper. 03/04 Review chest x-ray with patient, which does not show consistent signs of severe pulmonary disease. She has no flattening of the diaphragms, no hyperexpansion of the lung. There is some increase in pulmonary vascular congestion. There is possible infiltrate of the right middle lobe, obscuring the right heart border. Given possible infiltrate seen on chest x-ray, will start her empirically on Levaquin. She is currently on prednisone. 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 cons Cardio consult. 03/04 Last echo was one year ago. Patient is seen by Dr. Gomes. We will evaluate for worsening valvular heart disease or pulmonary hypertension. -Echocardiogram with Dr. Gomes (6) History of stroke Status: Chronic Problem Text: Discussed risks and benefits of stroke prevention with daily full -strength aspirin. After reviewing her home medications, she is on Mobic 15 mg daily, which may be inducing upper GI bleeding, and should not be used with her renal impairment. As I did not know of her chronic use of nonsteroidal drugs when I discussed discontinuing her full-strength aspirin, we may want to revisit this. For the time being, holding full-strength aspirin is appropriate, as full-strength aspirin causes GI side effects similar to NSAIDs. -Baby aspirin for now -Revisit full-strength aspirin after GI bleed resolves -Continue high-dose statin (7) Hypertension Status: Chronic Problem Text: Blood pressures are currently controlled. (8) Hyperlipidemia Status: Chronic Problem Text: Continuing high-dose statin (9) CKD (chronic kidney disease) stage 3, GFR 30-59 ml/min Status: Chronic Problem Specific Plan: Monitor Clinically Problem Text: 03/06 - Scr 1.6 today, stable. 03/05 Scr 1.89 today, increased from 1.51 yesterday, baseline appears to be 1.5- 1.6, monitor. Plan/VTE VTE Prophylaxis Ordered?: Yes (sequential pression device) VTE Exclusion Pharmacological: Active Bleeding Plan Therapy: PT (Not safe per PT 03/05.) Anticipated Discharge: Home (plan for home when ready.) Advance Directives: DNR Family Medicine Attending Note: Patient seen and examined; I d/w Anderson Tellez, and I agree with her note above. Echocardiogram report is still pending. Patient appears to have more energy today and lungs have improved air movement. She states she feels she is breathing better today. Hgb is down only slightly - will continue to trend. (KES) VS, I&O, 24H, Fishbone Vital Signs/I&O Vital Signs Date Time Temp Pulse Resp B/P Pulse Ox O2 Delivery O2 Flow Rate FiO2 03/06/17 08:49 83 139/65 03/06/17 07:43 Room Air 03/06/17 07:30 98.6 22 96 03/03/17 15:00 3 92 I&O- Last 24 Hours up to 6 AM 03/06/17 06:00 Intake Total 1200 ml Output Total 2350 ml Balance -1150 ml Laboratory Data 24H LABS Laboratory Tests 2 03/06/17 05:40: Blood Urea Nitrogen 39H, Creatinine 1.60H, Sodium Level 143, Potassium Level 4.3 , Chloride Level 109H, Carbon Dioxide Level 26, Calcium Level 8.3L, Aspartate Amino Transf (AST/SGOT) 10L, Alanine Aminotransferase (ALT/SGPT) 17, Alkaline Phosphatase 100, Total Bilirubin 0.3, Total Protein 6.3L, Albumin 2.8L, Albumin/ Globulin Ratio 0.80L, Anion Gap 8, Glomerular Filtration Rate 32.5 CBC/BMP Laboratory Tests 03/06/17 05:40 Calcium Level 8.3 L, Aspartate Amino Transf (AST/SGOT) 10 L, Alanine Aminotransferase (ALT/SGPT) 17, Alkaline Phosphatase 100, Total Bilirubin 0.3, Total Protein 6.3 L, Albumin 2.8 L, Red Blood Count 3.62 L, Mean Corpuscular Volume 85.7, Mean Corpuscular Hemoglobin 27.3, Mean Corpuscular Hemoglobin Concent 31.9 L, Red Cell Distribution Width 15.1 H Microbiology Microbiology 03/03/17 Blood Culture - Preliminary, Resulted No Growth after 48 hours. All Specime... ANDERSON TELLEZ PA-C Mar 06, 2017 09:12 SANDIP LICONA MD Mar 06, 2017 16:51
[2017-03-06] MEDS ORDERED: MOM 30ML SUSPENSION UDC PO PRN (09:15)
[2017-03-06] MEDS ORDERED: DOCUSATE SODIUM 100 MG CAP PO PRN (09:15)
[2017-03-06] MEDS: BENZONATATE 100 MG CAP PO PRN ×2 (14:21→20:46)
[2017-03-06 16:00] VITALS: BP 135/61
[2017-03-06] MEDS: LevoFLOXacin 750 MG TABLET PO SCH (17:14)
[2017-03-06 20:00] VITALS: BP 135/70
[2017-03-06] MEDS: ATORVASTATIN 20 MG TAB PO SCH (20:46)
[2017-03-07] MEDS: IPRATROPIUM 0.5MG/ALBUTEROL 2.5MG INH SOL UD 3ML (DUONEB)(J7620) NEB SCH ×3 (01:57→13:20)
[2017-03-07 04:00] VITALS: BP 124/68
[2017-03-07] MEDS: SUCRALFATE 1 GM TAB PO SCH ×2 (05:57→12:27)
[2017-03-07] MEDS: SLF 3 ML SYR IV SCH (05:57)
[2017-03-07 07:21] LABS: MEAN CORPUSCULAR HEMOGLOBIN 27.4 pg (27.0-33.0); MEAN CORPUSCULAR HGB CONC 32.2 g/dl (32.0-36.5)
[2017-03-07 07:41] LABS: ALBUMIN 2.7 GM/DL (3.2-5.2); ALBUMIN/GLOBULIN RATIO 0.84 (1.00-1.93); BILIRUBIN,TOTAL 0.3 MG/DL (0.2-1.0); CALCIUM LEVEL 8.6 MG/DL (8.8-10.2); CREATININE FOR GFR 1.4 MG/DL (0.55-1.02); GLOMERULAR FILTRATION RATE 37.9 (>32); POTASSIUM SERUM 4.8 MEQ/L (3.5-5.1); TOTAL PROTEIN 5.9 GM/DL (6.4-8.2)
[2017-03-07] MEDS: BENZONATATE 100 MG CAP PO PRN (08:01)
[2017-03-07] MEDS: OCUVITE 1 TAB PO SCH (08:01)
[2017-03-07] MEDS: DULoxetine 30 MG CAP (CYMBALTA) PO SCH (08:01)
[2017-03-07] MEDS: predniSONE 20 MG TAB PO SCH (08:02)
[2017-03-07] MEDS: ASPIRIN 81 MG ENTERIC TAB PO SCH (08:02)
[2017-03-07] MEDS: PANTOPRAZOLE 40MG TAB (PROTONIX) PO SCH (08:02)
[2017-03-07] MEDS: LOSARTAN 50 MG TAB PO SCH (08:04)
[2017-03-07 08:05] VITALS: BP 125/85
[2017-03-07] MEDS: METOPROLOL TART 25 MG TABLET PO SCH (08:05)
--- NOTE | 2017-03-07 08:26 | IPNPDOC ---
Subjective Date Seen The patient was seen on 03/07/17. Subjective Chief Complaint/HPI The patient is a 87-year-old female admitted with a reason for visit of Shortness Of Breath. Events since last encounter Pt continues to feel better every day. She states that she thinks she needs help in her home with laundry and home care. Her dgt has been helping her but this is becoming increasingly difficult for her. General: Denies: Fatigue Constitutional: Denies: Chills, Fever Pulmonary: Reports: Cough, Denies: Dyspnea Cardiovascular: Denies: Chest Pain, Palpitations Gastrointestinal: Denies: Diarrhea, Nausea, Vomiting Neurological: Reports: Weakness Psych: Reports: Mood Normal Objective Physical Examination General Exam: Positive: Alert, Cooperative, No Acute Distress ENT Exam: Positive: Atraumatic, Mucous membr. moist/pink Neck Exam: Positive: Supple, Negative: JVD, thyromegaly Chest Exam: Positive: Diminished, Negative: Rales, Rhonchi, Wheezing Heart Exam: Positive: Murmurs (3/6 pansystolic murmur radiating to carotids), Normal S1, Normal S2, Rate Normal, Regular Rhythm Abdomen Exam: Positive: Normal bowel sounds, Soft, Negative: Hepatospenomegaly, Tenderness Extremity Exam: Positive: Normal pulses, Negative: Clubbing, Cyanosis, Edema Skin Exam: Negative: Nl turgor and temperature (decreased skin turgor), Rash Psych Exam: Positive: Mental status NL, Mood NL, Oriented x 3 Assessment /Plan Problems (1) Upper GI bleeding Status: Acute Problem Text: 03/07 - Hgb 10.8, Cont with Protonix, Carafate. 03/06 - Hgb 9.9 today, down from 10.6 yesterday. Cont with Protonix, Carafate. Pt more willing to consider EGD if needed, although her ECHO results need to be noted before this is considered as I would expect her to be high risk for anesthesias assoc with with . 03/05 - Rec 1 unit pRBC yest, Hgb increased from 9.2 to 10.6, Mobic has been stopped, ASA reduced from 325 mg to 81 mg daily, cont with Protonix, Carafate, pt not really eager to under endoscopy. Will monitor Hgb. 03/04 Likely due to chronic full-strength aspirin and Mobic. Unsure why patient is on this medication, as she has renal impairment. Patient is currently on Protonix 40 mg daily, sucralfate. Will monitor for active bleeding, follow hemoglobins, and discontinue full-strength aspirin. Patient wishes to continue low-dose baby aspirin for stroke prevention. Discussed risks versus benefits of discontinuing aspirin therapy for stroke prevention. Indicated that further anticoagulation in the setting of upper GI bleeding is not indicated. - No NSAIDs - Reduce full-strength aspirin to daily baby aspirin -Monitor her hemoglobin -Transfuse 1 unit packed red blood cells, as patient blood 10, has coronary risk factors, and is currently symptomatic -Consider consulting surgery for endoscopy, as GI is not in-house for the remainder of the week; patient is not appreciably interested in doing endoscopy and definitely does not want to do a colonoscopy. (2) Acute blood loss anemia Status: Acute Problem Text: 03/05 - Fe 53, Ferritin pending, TIBC 326, Hgb stable after 1 unit pRBCs, hemoccult ordered, not yet obtained. 03/04 Transfusing 1 unit packed red blood cells as above -Anemia labs -Stool occult blood (3) Shortness of breath Status: Acute Problem Text: 03/07 - Levaquin D 4 03/06 - Levaquin D3, will reduce Pred today. 03/05 - Levaquin D2, Pred 40 mg, will need taper. 03/04 Review chest x-ray with patient, which does not show consistent signs of severe pulmonary disease. She has no flattening of the diaphragms, no hyperexpansion of the lung. There is some increase in pulmonary vascular congestion. There is possible infiltrate of the right middle lobe, obscuring the right heart border. Given possible infiltrate seen on chest x-ray, will start her empirically on Levaquin. She is currently on prednisone. 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 cons Cardio consult. 03/04 Last echo was one year ago. Patient is seen by Dr. Gomes. We will evaluate for worsening valvular heart disease or pulmonary hypertension. -Echocardiogram with Dr. Gomes (6) History of stroke Status: Chronic Problem Text: Discussed risks and benefits of stroke prevention with daily full -strength aspirin. After reviewing her home medications, she is on Mobic 15 mg daily, which may be inducing upper GI bleeding, and should not be used with her renal impairment. As I did not know of her chronic use of nonsteroidal drugs when I discussed discontinuing her full-strength aspirin, we may want to revisit this. For the time being, holding full-strength aspirin is appropriate, as full-strength aspirin causes GI side effects similar to NSAIDs. -Baby aspirin for now -Revisit full-strength aspirin after GI bleed resolves -Continue high-dose statin (7) Hypertension Status: Chronic Problem Text: Blood pressures are currently controlled. (8) Hyperlipidemia Status: Chronic Problem Text: Continuing high-dose statin (9) CKD (chronic kidney disease) stage 3, GFR 30-59 ml/min Status: Chronic Problem Specific Plan: Monitor Clinically Problem Text: 03/06 - Scr 1.6 today, stable. 03/05 Scr 1.89 today, increased from 1.51 yesterday, baseline appears to be 1.5- 1.6, monitor. Plan/VTE VTE Prophylaxis Ordered?: Yes (sequential pression device) VTE Exclusion Pharmacological: Active Bleeding Plan Therapy: PT (Not safe per PT 03/06.) Anticipated Discharge: Home (plan for home when ready.) Advance Directives: DNR Family Medicine Attending Note: Please see dictated discharge summary from today 's date. (KES) VS, I&O, 24H, Fishbone Vital Signs/I&O Vital Signs Date Time Temp Pulse Resp B/P Pulse Ox O2 Delivery O2 Flow Rate FiO2 03/07/17 08:05 76 125/85 03/07/17 07:58 Room Air 03/07/17 04:00 98.3 18 92 03/03/17 15:00 3 92 I&O- Last 24 Hours up to 6 AM 03/07/17 06:00 Intake Total 1240 ml Output Total 1300 ml Balance -60 ml Laboratory Data 24H LABS Laboratory Tests 2 03/07/17 07:00: Blood Urea Nitrogen 42H, Creatinine 1.40H, Sodium Level 142, Potassium Level 4.8 , Chloride Level 109H, Carbon Dioxide Level 26, Calcium Level 8.6L, Aspartate Amino Transf (AST/SGOT) 11L, Alanine Aminotransferase (ALT/SGPT) 17, Alkaline Phosphatase 95, Total Bilirubin 0.3, Total Protein 5.9L, Albumin 2.7L, Albumin/ Globulin Ratio 0.84L, Anion Gap 7L, Glomerular Filtration Rate 37.9 CBC/BMP Laboratory Tests 03/07/17 07:00 Calcium Level 8.6 L, Aspartate Amino Transf (AST/SGOT) 11 L, Alanine Aminotransferase (ALT/SGPT) 17, Alkaline Phosphatase 95, Total Bilirubin 0.3, Total Protein 5.9 L, Albumin 2.7 L, Red Blood Count 3.93 L, Mean Corpuscular Volume 85.0, Mean Corpuscular Hemoglobin 27.4, Mean Corpuscular Hemoglobin Concent 32.2, Red Cell Distribution Width 15.0 H Microbiology Microbiology 03/03/17 Blood Culture - Preliminary, Resulted No Growth after 72 hours. All specime... 03/06/17 Stool Occult Blood (NESHA) - Final, Complete ANDERSON TELLEZ PA-C Mar 07, 2017 08:26 SANDIP TINSLEY MD Mar 07, 2017 13:11
[2017-03-07 12:00] VITALS: BP 126/72
[2017-03-07] MEDS ORDERED: LEVA750T PO (13:09)
[2017-03-07] MEDS ORDERED: PRED20TA PO (13:09)
--- NOTE | 2017-03-07 18:23 | DSES ---
DATE OF ADMISSION: 03/03/2017 DATE OF DISCHARGE: 03/07/2017 PRIMARY CARE PROVIDER: German Chavis MD ATTENDING PHYSICIAN: Leila Licona MD PRINCIPAL DIAGNOSES: 1. Community acquired pneumonia. 2. Anemia. 3. Diastolic congestive heart failure. 4. Severe aortic stenosis. SECONDARY DIAGNOSES: 1. History of stroke. 2. Hypertension. 3. Hyperlipidemia. 4. Chronic kidney disease, stage 3. SUMMARY STATEMENT: This is an 87-year-old woman who presented with progressively worsening shortness of breath which was felt to be multifactorial in etiology. The patient has a history of severe aortic stenosis, diagnosed in January 2016 and has had some gradual progression of shortness of breath over the past year. She had acute worsening of shortness of breath in the two weeks prior to admission and was treated with antibiotics for upper respiratory infection as an outpatient. She also was found to be anemic with a questionable upper GI bleed during her admission. She had improvement in her shortness of breath after receiving one unit of packed red blood cells as well as being treated with Levaquin and prednisone for a community acquired pneumonia. She was discharged home to complete a 7 day course of antibiotics and a prednisone taper. DISCHARGE PLANS: Discharge medications: 1. Levofloxacin 750 mg by mouth daily for 4 days 2. Prednisone 20 mg, take 1 tablet daily for 3 days, then 1/2 tablet daily for 3 days. 3. Aspirin 325 mg by mouth daily. 4. Atorvastatin 80 mg by mouth at bedtime. 5. Vitamin D 1000 units by mouth daily. 6. Duloxetine 60 mg by mouth daily. 7. Losartan 50 mg by mouth daily. 8. Metoprolol tartrate 25 mg twice daily. 9. Pantoprazole 40 mg by mouth daily. 10. MiraLAX 17 grams by daily as needed for constipation. 11. Sucralfate 1 gram by mouth 4 times daily. MEDICATIONS STOPPED DURING THIS ADMISSION: Meloxicam 15 mg by mouth daily. FOLLOWUP: With Dr. Licona on March 12, 2017 at 11:00 a.m. ACTIVITY: As tolerated. DIET: Low sodium diet. CONDITION: Stable. PROGNOSIS: Good. PENDING STUDIES: Finalized blood culture. HOSPITAL COURSE BY PROBLEM: This is an 87-year-old woman with: 1. Community acquired pneumonia: The patient presented with shortness of breath and had improvement after receiving levofloxacin and prednisone. She felt significantly improved at time of discharge and was continued on antibiotics to complete a 7 days course as well as a prednisone taper. 2. Anemia: The patient was found to be anemic during this hospitalization with hemoglobin of 9.2. She received 1 unit of packed red blood cells. Meloxicam was stopped and her aspirin dose was decreased from 325 mg daily to 81 mg daily. Her hemoglobin remained stable after receiving 1 unit of packed red blood cells. Subsequently, her stool was found to be hemoccult negative. Therefore, her aspirin was increased to 325 mg daily at time of discharge and she was asked to notify her primary care physician if she developed any rectal bleeding or black tarry stools. 3. Severe aortic stenosis: The patient has known severe aortic stenosis and I had extensive discussion with patient about the prognosis if no valvular repair is done. She is not interested in surgery at this time and is likely a poor surgical candidate. Echocardiogram was ordered; report is pending at time of discharge. 4. Acute kidney injury, on chronic kidney disease: The patient was initially found to have a mildly elevated creatinine above baseline, but creatinine the creatinine had improved by time of discharge. 5. Diastolic congestive heart failure due to valvular disease: The patient initially received a dose of Lasix which was likely the cause of acute worsening of her creatinine during hospitalization. After Lasix was stopped, kidney function returned to baseline. She had no evidence of fluid overload on exam or on chest x-ray during her hospitalization. 6. History of stroke: The patient's full dose aspirin was reduced to baby aspirin due to her anemia and suspicion for an upper GI bleed. This was restarted at her home dose upon discharge. 7. The patient was continued on her home Protonix and Sucralfate. Meloxicam was stopped during this hospitalization due to concern that it could cause or exacerbate an upper GI bleed. 8. Hypertension: Blood pressure was well controlled on metoprolol during her hospitalization. The patient was continued on losartan. 9. Hyperlipidemia: The patient was continued on her home statin. 10. Vitamin D deficiency: The patient was continued on her vitamin D supplement. MTDD
[2017-03-08] MEDS ORDERED: predniSONE 20 MG TAB PO SCH (09:00)
--- NOTE | 2017-03-10 05:44 | ECHO ---
DATE OF PROCEDURE: 03/04/2017 DATE OF : 1930 AGE: 87 REFERRING PROVIDER: Dr. Jovon Wesley. PATIENT LOCATION: Room 3230. REASON FOR ECHOCARDIOGRAM: Shortness of breath. 2D MEASUREMENTS: IVS: 0.9 cm LV: 5.0 cm LVPW: 0.9 cm LA: 4.5 cm Aorta: 2.8 cm IVC: 1.7 cm DOPPLER MEASUREMENTS: Peak velocity across the aortic valve: 4.8 m/s Peak velocity across the LVOT: 0.9 m/s Peak gradient across the aortic valve: 92 mmHg Mean gradient across the aortic valve: 65 mmHg Mitral E: 2.0 Mitral A: 1.3 Ratio 1.6 Peak gradient across the mitral valve: 21 mmHg Mean gradient across the mitral valve: 9 mmHg Maximum tricuspid valve velocity: 3.5 m/s 2D COMMENTS: 1. Normal left ventricular size, wall thickness and normal global left ventricular systolic function estimated at 60-65%. 2. Mildly enlarged left atrium. The right atrium may also be mildly enlarged. Normal right ventricle. 3. The atrial septum appeared to be normal without evidence of defect or shunt. 4. Normal aortic root. 5. No pericardial effusion. 6. Moderately calcified aortic valve with decrease in leaflet motion. Moderately calcified mitral annulus, leaflet excursion was not well visualized. Normal tricuspid valve. 7. The inferior vena cava was normal in size, central venous pressure likely normal. DOPPLER: It detects mild to moderate aortic regurgitation, moderate mitral regurgitation and mild to moderate tricuspid regurgitation. The calculated pulmonary artery systolic pressure varies between 50 to 60 mmHg. Assessment of the left ventricular diastolic function appeared to be normal. IMPRESSION: 1. Normal global left ventricular systolic function. 2. Calcific aortic stenosis, severe with moderate aortic regurgitation. 3. Mildly enlarged left atrium with moderate mitral regurgitation and moderate calcific mitral stenosis. 4. Mild to moderate tricuspid regurgitation with moderately severe pulmonary hypertension. 5. This was compared with last echocardiogram on 02/18/2016. The aortic valve severity is the same. Mitral stenosis and pulmonary hypertension seems to be now more severe.
== END 2017-03-07 15:30 | disposition home or self-care (01) | DRG 811 ==
LOC: M ED 12:10 → INTOOBSV 15:30 → M ED INP 15:30 → OBSVTOIN 15:35 → M PCU 23:31
PROVIDERS: ADMIT Internal Medicine; ATTEND Family Medicine
PROC: 30233N1 Transfusion of Nonautologous Red Blood Cells into Peripheral Vein, Percutaneous Approach (ICD-10-PCS; principal; 2017-03-04)
DX: D62 Acute posthemorrhagic anemia (principal); J18.9 Pneumonia, unspecified organism; K92.2 Gastrointestinal hemorrhage, unspecified; I50.32 Chronic diastolic (congestive) heart failure; I13.0 Hypertensive heart and chronic kidney disease with heart failure and stage 1 through stage 4 chronic kidney disease, or unspecified chronic kidney disease; N17.9 Acute kidney failure, unspecified; J44.9 Chronic obstructive pulmonary disease, unspecified; N18.3 Chronic kidney disease, stage 3 (moderate); E78.5 Hyperlipidemia, unspecified; Z86.73 Personal history of transient ischemic attack (TIA), and cerebral infarction without residual deficits; I35.0 Nonrheumatic aortic (valve) stenosis; Z79.899 Other long term (current) drug therapy; Z79.82 Long term (current) use of aspirin; E55.9 Vitamin D deficiency, unspecified; I34.0 Nonrheumatic mitral (valve) insufficiency; K21.9 Gastro-esophageal reflux disease without esophagitis; Z88.8 Allergy status to other drugs, medicaments and biological substances

== ENCOUNTER → 2017-03-12 | Outpatient (REF) | payer MEDICARE ==
[~2017-03-12] MED LIST changes: +COZA50TA PO; +EYECAP PO; +LEVA750T PO; +METO12TA PO; +OCUVCAP5 PO; +PANT40TA2; +PANT40TA2 PO; +PRED20TA PO; +VITA100066 PO
[2017-03-12 13:14] LABS: MEAN CORPUSCULAR HEMOGLOBIN 27.2 pg (27.0-33.0); MEAN CORPUSCULAR HGB CONC 31.9 g/dl (32.0-36.5); MEAN CORPUSCULAR VOLUME 85.5 fl (80.0-96.0); RED CELL DISTRIBUTION WIDTH 14.7 % (11.5-14.5); WHITE BLOOD COUNT 12.6 K/mm3 (4.0-10.0)
== END ==
LOC: M SFHCPLAZ 11:32
PROVIDERS: ATTEND Family Medicine
DX: D64.9 Anemia, unspecified (principal)
CPT/HCPCS: 85027; G0463

== ENCOUNTER → 2017-10-20 | Outpatient (CLI) | payer MEDICARE ==
[~2017-10-20] MED LIST changes: -CARA1TAB2 PO; +CARA1TAB6 PO; -LEVA750T PO; +LEVA750T7 PO; -METO12TA PO; +METO1TAB87 PO
[2017-10-20 19:10] LABS: ALBUMIN 3.5 GM/DL (3.2-5.2); BILIRUBIN,TOTAL 0.4 MG/DL (0.2-1.0); CALCIUM LEVEL 9.1 MG/DL (8.8-10.2); CREATININE FOR GFR 1.7 MG/DL (0.55-1.02); GLOMERULAR FILTRATION RATE 30.3 (>32); POTASSIUM SERUM 4.5 MEQ/L (3.5-5.1)
== END ==
LOC: M LRY 11:17
PROVIDERS: ATTEND Internal Medicine Cardiovascular Disease
DX: E78.5 Hyperlipidemia, unspecified (principal); N18.9 Chronic kidney disease, unspecified

== ENCOUNTER 2017-12-25 10:16 | Emergency (ER) | payer MEDICARE ==
[2017-12-25 11:13] LABS: BASO % 0.3 % (0.0-1.0); EOS % 0.4 % (0.0-3.0); HEMATOCRIT 37.7 % (36.0-47.0); HEMOGLOBIN 12.1 g/dl (12.0-16.0); IMMATURE GRANULOCYTE % 0.2 % (0-3.0); LYMPH % 19.9 % (24.0-44.0); MEAN CORPUSCULAR HEMOGLOBIN 27.8 pg (27.0-33.0); MEAN CORPUSCULAR HGB CONC 32.1 g/dl (32.0-36.5); MEAN CORPUSCULAR VOLUME 86.7 fl (80.0-96.0); MONO # 0.6 10^3/uL (0.0-0.8); MONO % 5.6 % (0.0-5.0); NEUTROPHILS # 7.4 10^3/uL (1.8-7.7); NEUTROPHILS % 73.6 % (36.0-66.0); PLATELET COUNT, AUTOMATED 165 10^3/uL (150-450); RED BLOOD COUNT 4.35 10^6/uL (4.00-5.40); RED CELL DISTRIBUTION WIDTH 14.6 % (11.5-14.5)
[2017-12-25] MEDS: IPRATROPIUM 0.5MG/ALBUTEROL 2.5MG INH SOL UD 3ML (DUONEB)(J7620) NEB ×3 (11:26→11:55)
[2017-12-25 11:27] LABS: PROTHROMBIN TIME 13.3 SECONDS (12.4-14.5)
[2017-12-25 11:40] LABS: ANION GAP 10 MEQ/L (8-16); BLOOD UREA NITROGEN 26 MG/DL (7-18); CALCIUM LEVEL 9.3 MG/DL (8.8-10.2); CARBON DIOXIDE LEVEL 25 MEQ/L (21-32); CHLORIDE LEVEL 105 MEQ/L (98-107); CK-MB VALUE MASS 1.3 NG/ML (0.0-3.6); CPK CREATINE PHOSPHOKINASE 80 U/L (26-192); CREATININE FOR GFR 1.76 MG/DL (0.55-1.30); GLOMERULAR FILTRATION RATE 29.1 (>32); GLUCOSE, FASTING 159 MG/DL (70-100); MB/CK RELATIVE INDEX 1.62 (< OR =4); SODIUM LEVEL 140 MEQ/L (136-145); TROPONIN I < 0.02 NG/ML (< 0.10)
[2017-12-25 11:48] LABS: ALBUMIN 3.4 GM/DL (3.2-5.2); ALBUMIN/GLOBULIN RATIO 0.97 (1.00-1.93); ALKALINE PHOSPHATASE 136 U/L (45-117); ALT/SGPT 16 U/L (12-78); AST/SGOT 14 U/L (7-37); BILIRUBIN,DIRECT 0.1 MG/DL (0.0-0.2); BILIRUBIN,TOTAL 0.5 MG/DL (0.2-1.0); NT-PRO BNP 2442 PG/ML (<450); TOTAL PROTEIN 6.9 GM/DL (6.4-8.2)
== END 2017-12-25 17:58 | disposition home or self-care (01) ==
LOC: M ED 10:16
DX: R06.02 Shortness of breath (principal); R05 Cough; B97.4 Respiratory syncytial virus as the cause of diseases classified elsewhere; I12.9 Hypertensive chronic kidney disease with stage 1 through stage 4 chronic kidney disease, or unspecified chronic kidney disease; N18.3 Chronic kidney disease, stage 3 (moderate); E78.5 Hyperlipidemia, unspecified; F33.9 Major depressive disorder, recurrent, unspecified; M48.00 Spinal stenosis, site unspecified; Z79.899 Other long term (current) drug therapy; Z79.82 Long term (current) use of aspirin; Z88.8 Allergy status to other drugs, medicaments and biological substances
CPT/HCPCS: 71045

== ENCOUNTER → 2018-05-22 | Outpatient (CLI) | payer MEDICARE ==
[2018-05-22 13:24] LABS: HEMATOCRIT 32.5 % (36.0-47.0); HEMOGLOBIN 9.8 g/dl (12.0-15.5); MEAN CORPUSCULAR HEMOGLOBIN 27.8 pg (27.0-33.0); MEAN CORPUSCULAR HGB CONC 30.2 g/dl (32.0-36.5); MEAN CORPUSCULAR VOLUME 92.3 fl (80.0-96.0); PLATELET COUNT, AUTOMATED 199 10^3/uL (150-450); RED BLOOD COUNT 3.52 10^6/uL (4.00-5.40); RED CELL DISTRIBUTION WIDTH 15.5 % (11.5-14.5); WHITE BLOOD COUNT 6.9 10^3/uL (4.0-10.0)
[2018-05-22 13:45] LABS: ANION GAP 6 MEQ/L (8-16); BLOOD UREA NITROGEN 29 MG/DL (7-18); CALCIUM LEVEL 9.5 MG/DL (8.8-10.2); CARBON DIOXIDE LEVEL 31 MEQ/L (21-32); CHLORIDE LEVEL 107 MEQ/L (98-107); CREATININE FOR GFR 1.67 MG/DL (0.55-1.30); GLOMERULAR FILTRATION RATE 30.8 (>32); GLUCOSE, FASTING 88 MG/DL (70-100); POTASSIUM SERUM 4.5 MEQ/L (3.5-5.1); SODIUM LEVEL 144 MEQ/L (136-145)
== END ==
LOC: M SMT 10:07
DX: I35.9 Nonrheumatic aortic valve disorder, unspecified (principal); I63.59 Cerebral infarction due to unspecified occlusion or stenosis of other cerebral artery; N18.9 Chronic kidney disease, unspecified
CPT/HCPCS: 80048

== ENCOUNTER → 2018-05-22 | Outpatient (REF) | LOC: M SMT 10:07 | DX: Z53.8 Procedure and treatment not carried out for other reasons (principal) ==

== ENCOUNTER → 2018-06-12 | Outpatient (REF) ==
[2018-06-12 11:25] LABS: HEMATOCRIT 32.9 % (36.0-47.0); HEMOGLOBIN 10.4 g/dl (12.0-15.5); MEAN CORPUSCULAR HEMOGLOBIN 29.5 pg (27.0-33.0); MEAN CORPUSCULAR HGB CONC 31.6 g/dl (32.0-36.5); MEAN CORPUSCULAR VOLUME 93.2 fl (80.0-96.0); PLATELET COUNT, AUTOMATED 153 10^3/uL (150-450); RED BLOOD COUNT 3.53 10^6/uL (4.00-5.40); RED CELL DISTRIBUTION WIDTH 17.1 % (11.5-14.5); WHITE BLOOD COUNT 4.8 10^3/uL (4.0-10.0)
[2018-06-12 11:56] LABS: ANION GAP 8 MEQ/L (8-16); BLOOD UREA NITROGEN 32 MG/DL (7-18); CALCIUM LEVEL 9.1 MG/DL (8.8-10.2); CARBON DIOXIDE LEVEL 26 MEQ/L (21-32); CHLORIDE LEVEL 108 MEQ/L (98-107); CREATININE FOR GFR 1.65 MG/DL (0.55-1.30); GLOMERULAR FILTRATION RATE 31.3 (>32); GLUCOSE, FASTING 197 MG/DL (70-100); POTASSIUM SERUM 4.2 MEQ/L (3.5-5.1); SODIUM LEVEL 142 MEQ/L (136-145)
== END ==
DX: I67.9 Cerebrovascular disease, unspecified (principal)

== ENCOUNTER → 2018-06-15 | Outpatient (CLI) | payer MEDICARE ==
[2018-06-15 18:20] LABS: HEMATOCRIT 37.1 % (36.0-47.0); HEMOGLOBIN 11.5 g/dl (12.0-15.5); MEAN CORPUSCULAR HEMOGLOBIN 29.1 pg (27.0-33.0); MEAN CORPUSCULAR VOLUME 93.9 fl (80.0-96.0); PLATELET COUNT, AUTOMATED 188 10^3/uL (150-450); RED BLOOD COUNT 3.95 10^6/uL (4.00-5.40); RED CELL DISTRIBUTION WIDTH 16.6 % (11.5-14.5); WHITE BLOOD COUNT 6.7 10^3/uL (4.0-10.0)
[2018-06-15 18:37] LABS: ANION GAP 11 MEQ/L (8-16); BLOOD UREA NITROGEN 32 MG/DL (7-18); CALCIUM LEVEL 9.3 MG/DL (8.8-10.2); CARBON DIOXIDE LEVEL 27 MEQ/L (21-32); CHLORIDE LEVEL 106 MEQ/L (98-107); CREATININE FOR GFR 1.78 MG/DL (0.55-1.30); GLOMERULAR FILTRATION RATE 28.6 (>32); GLUCOSE, FASTING 100 MG/DL (70-100); POTASSIUM SERUM 4.5 MEQ/L (3.5-5.1); SODIUM LEVEL 144 MEQ/L (136-145)
== END ==
LOC: M SMT 13:05
DX: R06.02 Shortness of breath (principal); I10 Essential (primary) hypertension; Z86.73 Personal history of transient ischemic attack (TIA), and cerebral infarction without residual deficits
CPT/HCPCS: 80048

== ENCOUNTER → 2018-07-08 | Outpatient (REF) | payer MEDICARE | LOC: M SFHCADAM 10:34 | DX: Z86.73 Personal history of transient ischemic attack (TIA), and cerebral infarction without residual deficits (principal); F32.1 Major depressive disorder, single episode, moderate; E78.2 Mixed hyperlipidemia; F03.90 Unspecified dementia, unspecified severity, without behavioral disturbance, psychotic disturbance, mood disturbance, and anxiety; N18.3 Chronic kidney disease, stage 3 (moderate); Z53.8 Procedure and treatment not carried out for other reasons ==

== ENCOUNTER → 2018-07-10 | Outpatient (REF) ==
[2018-07-10 10:32] LABS: HEMOGLOBIN 12.3 g/dl (12.0-15.5); MEAN CORPUSCULAR HEMOGLOBIN 29.9 pg (27.0-33.0); MEAN CORPUSCULAR HGB CONC 32.4 g/dl (32.0-36.5); MEAN CORPUSCULAR VOLUME 92.5 fl (80.0-96.0); PLATELET COUNT, AUTOMATED 170 10^3/uL (150-450); RED BLOOD COUNT 4.11 10^6/uL (4.00-5.40); RED CELL DISTRIBUTION WIDTH 14.1 % (11.5-14.5); WHITE BLOOD COUNT 5.5 10^3/uL (4.0-10.0)
[2018-07-10 11:40] LABS: ALBUMIN 3.2 GM/DL (3.2-5.2); ALBUMIN/GLOBULIN RATIO 0.97 (1.00-1.93); ALKALINE PHOSPHATASE 110 U/L (45-117); ALT/SGPT 19 U/L (12-78); ANION GAP 12 MEQ/L (8-16); AST/SGOT 17 U/L (7-37); BILIRUBIN,TOTAL 0.3 MG/DL (0.2-1.0); BLOOD UREA NITROGEN 26 MG/DL (7-18); CALCIUM LEVEL 8.8 MG/DL (8.8-10.2); CARBON DIOXIDE LEVEL 21 MEQ/L (21-32); CHLORIDE LEVEL 110 MEQ/L (98-107); CHOLESTEROL LEVEL 154 MG/DL (<200); CHOLESTEROL RISK RATIO 2.961 (<5); CREATININE FOR GFR 1.56 MG/DL (0.55-1.30); FREE T4 1.04 NG/DL (0.76-1.46); GLOMERULAR FILTRATION RATE 33.3 (>32); GLUCOSE, FASTING 180 MG/DL (70-100); HDL CHOLESTEROL 52 MG/DL (>40); LDL CHOLESTEROL 61.8 MG/DL (<100); NON-HDL-C 102 MG/DL; POTASSIUM SERUM 4.2 MEQ/L (3.5-5.1); SODIUM LEVEL 143 MEQ/L (136-145); TOTAL PROTEIN 6.5 GM/DL (6.4-8.2); TRIGLYCERIDES LEVEL 201 MG/DL (<150)
== END ==
DX: E78.2 Mixed hyperlipidemia (principal); F03.90 Unspecified dementia, unspecified severity, without behavioral disturbance, psychotic disturbance, mood disturbance, and anxiety; F32.1 Major depressive disorder, single episode, moderate

== ENCOUNTER 2018-08-01 09:12 | Emergency (ER) | payer MEDICARE | END 2018-08-01 11:18 | disposition home or self-care (01) | LOC: M ED 09:12 | DX: S70.02XA Contusion of left hip, initial encounter (principal); W18.39XA Other fall on same level, initial encounter; Y92.128 Other place in nursing home as the place of occurrence of the external cause; I12.9 Hypertensive chronic kidney disease with stage 1 through stage 4 chronic kidney disease, or unspecified chronic kidney disease; N18.3 Chronic kidney disease, stage 3 (moderate); K21.9 Gastro-esophageal reflux disease without esophagitis; F33.9 Major depressive disorder, recurrent, unspecified; E78.5 Hyperlipidemia, unspecified; R91.1 Solitary pulmonary nodule; F71 Moderate intellectual disabilities; Z86.73 Personal history of transient ischemic attack (TIA), and cerebral infarction without residual deficits; Z79.899 Other long term (current) drug therapy; Z79.82 Long term (current) use of aspirin; Z79.02 Long term (current) use of antithrombotics/antiplatelets; Z88.8 Allergy status to other drugs, medicaments and biological substances | CPT/HCPCS: 73502 ==

== ENCOUNTER → 2018-12-17 | Outpatient (REF) | payer MEDICARE ==
[~2018-12-17] MED LIST changes: +ACET1TAB55 PO; +ALBU83IN INH; +ANUS2.5C2 PR; +ASPI1TAB15 PO; +DONETAB5 PO; +FERR1TAB8 PO; +KLOR10TA76 PO; -LOSA100T36 PO; +LOSA100T50 PO; +MELO15TA28 PO; -MELO15TA4 PO; +MILK120011 PO; +NEBUMIS2 XX; -PANT40TA2; -PANT40TA2 PO; +PANT40TA3; +PANT40TA3 PO; +PLAV1TAB2 PO; -POTA10CA PO; +ZOFR4TAB16 PO
[2018-12-17 14:23] LABS: APPEARANCE, URINE CLEAR (CLEAR); BACTERIA, URINE AUTO 1+ (NEGATIVE); BILIRUBIN, URINE AUTO NEGATIVE (NEGATIVE); BLOOD, URINE BLOOD NEGATIVE (NEGATIVE); COLOR, URINE YELLOW (YELLOW); GLUCOSE, URINE (UA) AUTO NEGATIVE (NEGATIVE); KETONE, URINE AUTO NEGATIVE (NEGATIVE); LEUKOCYTE ESTERASE, URINE AUTO NEGATIVE (NEGATIVE); NITRITE, URINE AUTO NEGATIVE (NEGATIVE); PROTEIN, URINE AUTO NEGATIVE (NEGATIVE); RBC, URINE AUTO 1 /HPF (0-3); SPECIFIC GRAVITY URINE AUTO 1.006 (1.002-1.035); SQUAMOUS EPITHELIAL CELL UR AU 3 /HPF (0-6); UROBILINOGEN, URINE AUTO 0.2 mg/dL (0.0-2.0); WBC, URINE AUTO 1 /HPF (0-3)
== END ==
LOC: M SFHCPLAZ 13:58
PROVIDERS: ATTEND Family Medicine
DX: R41.82 Altered mental status, unspecified (principal)

== ENCOUNTER → 2018-12-29 | Outpatient (REF) | payer MEDICARE ==
[~2018-12-29] MED LIST changes: +ASPI-1 PO; -ASPI325T PO
[2018-12-29 09:55] LABS: HEMATOCRIT 41.1 % (36.0-47.0); HEMOGLOBIN 13.9 g/dl (12.0-15.5); MEAN CORPUSCULAR HEMOGLOBIN 31.2 pg (27.0-33.0); MEAN CORPUSCULAR HGB CONC 33.8 g/dl (32.0-36.5); MEAN CORPUSCULAR VOLUME 92.2 fl (80.0-96.0); PLATELET COUNT, AUTOMATED 160 10^3/uL (150-450); RED BLOOD COUNT 4.46 10^6/uL (4.00-5.40); WHITE BLOOD COUNT 9.6 10^3/uL (4.0-10.0)
[2018-12-29 10:36] LABS: ALBUMIN 3.5 GM/DL (3.2-5.2); BILIRUBIN,TOTAL 0.6 MG/DL (0.2-1.0); CALCIUM LEVEL 9.1 MG/DL (8.8-10.2); CHOLESTEROL RISK RATIO 3.372 (<5); CREATININE FOR GFR 1.35 MG/DL (0.55-1.30); GLOMERULAR FILTRATION RATE 39.4 (>32); POTASSIUM SERUM 4.1 MEQ/L (3.5-5.1); THYROID STIMULATING HORMONE 1.31 uIU/ML (0.358-3.740); TOTAL PROTEIN 6.5 GM/DL (6.4-8.2)
== END ==
PROVIDERS: ATTEND Family Medicine
DX: F03.90 Unspecified dementia, unspecified severity, without behavioral disturbance, psychotic disturbance, mood disturbance, and anxiety (principal); F41.9 Anxiety disorder, unspecified; E78.00 Pure hypercholesterolemia, unspecified

== ENCOUNTER 2019-04-02 18:00 | Emergency (ER) | payer MEDICARE ==
[~2019-04-02] VITALS: Ht 152.4 cm; Wt 85.5 kg
[2019-04-02] MEDS ORDERED: DONE10TA90 PO (18:42)
[2019-04-02] MEDS ORDERED: VITA200012 PO (18:42)
[2019-04-02] MEDS ORDERED: MIRA3350 PO (18:42)
[2019-04-02] MEDS ORDERED: ALBU83IN NEB (18:42)
[2019-04-02] MEDS ORDERED: MOM30SS PO (18:42)
[2019-04-02] MEDS ORDERED: ONDA4TAB5 PO (18:42)
[2019-04-02] MEDS ORDERED: MECL1CHW PO (18:42)
[2019-04-02] MEDS ORDERED: PHARMACY COMMENT (18:44)
[2019-04-02 18:59] LABS: BASO # 0.1 10^3/uL (0.0-0.2); BASO % 0.6 % (0.0-1.0); EOS # 0.2 10^3/uL (0.0-0.50); EOS % 2.2 % (0.0-3.0); HEMATOCRIT 40.4 % (36.0-47.0); HEMOGLOBIN 13.4 g/dl (12.0-15.5); LYMPH # 3.1 10^3/uL (1.5-4.5); LYMPH % 35.9 % (24.0-44.0); MEAN CORPUSCULAR HEMOGLOBIN 32.3 pg (27.0-33.0); MEAN CORPUSCULAR HGB CONC 33.2 g/dl (32.0-36.5); MEAN CORPUSCULAR VOLUME 97.3 fl (80.0-96.0); MONO # 0.7 10^3/uL (0.0-0.8); MONO % 7.6 % (0.0-5.0); NEUTROPHILS # 4.7 10^3/uL (1.8-7.7); NEUTROPHILS % 53.5 % (36.0-66.0); PLATELET COUNT, AUTOMATED 152 10^3/uL (150-450); RED BLOOD COUNT 4.15 10^6/uL (4.00-5.40); WHITE BLOOD COUNT 8.7 10^3/uL (4.0-10.0)
[2019-04-02 19:32] LABS: BLOOD UREA NITROGEN 17 MG/DL (7-18); CALCIUM LEVEL 8.6 MG/DL (8.8-10.2); CARBON DIOXIDE LEVEL 29 MEQ/L (21-32); CHLORIDE LEVEL 105 MEQ/L (98-107); CPK CREATINE PHOSPHOKINASE 175 U/L (26-192); CREATININE FOR GFR 1.38 MG/DL (0.55-1.30); GLOMERULAR FILTRATION RATE 38.3 (>32); GLUCOSE, FASTING 139 MG/DL (70-100); MB/CK RELATIVE INDEX 0.97 (< OR =4); NT-PRO BNP 928 PG/ML (<450); POTASSIUM SERUM 3.9 MEQ/L (3.5-5.1); SODIUM LEVEL 140 MEQ/L (136-145); TROPONIN I < 0.02 NG/ML (< 0.10)
[2019-04-02] MEDS ORDERED: dexameTHASONE 20 MG/5 ML VIAL (J1100) IV ONE (21:00)
[2019-04-02] MEDS ORDERED: PRED20TA PO (22:03)
[2019-04-02 22:20] VITALS: BP 135/70
--- NOTE | 2019-04-03 08:18 | REP ---
REASON: Dyspnea and cough. COMPARISON: 12/25/2017. The technique utilized in obtaining the radiograph has magnified the cardiac silhouette and accentuated the interstitial markings. FINDINGS: The superior mediastinal structures are midline. The cardiac silhouette is unremarkable in size, shape, and position. The diaphragmatic surfaces of the lungs are regular, and the costophrenic angles are clear. The pulmonary linton are clear. The imaged osseous structures are intact. IMPRESSION: There is no acute cardiopulmonary disease. Cardiac silhouette is again accentuated by technique as are the interstitial markings. Electronically Signed by Kingsley Leonardo DO 04/03/2019 08:33 A
--- NOTE | 2019-04-03 17:48 | ECGEPIP ---
Stationary ECG Study [facility] - ED Test Date: 2019-04-02 Pat Name: NI BAILON Department: Room: - Gender: F Salesforce Administrator: marvin : 1930 Requested By: Marc Gan Order Number: [id number] Reading MD: Ana Colindres Measurements Intervals [place] Rate: 73 P: 14 NE: 103 QRS: 49 QRSD: 103 T: 69 QT: 408 QTc: 451 Interpretive Statements SINUS RHYTHM WITH SHORT NE INTERVAL NSTTW ABNORMALITY PROBABLE INFERIOR MYOCARDIAL INFARCTION, OF INDETERMINATE AGE DECREASED RATE 12/25/17 Electronically Signed On 04-03-2019 17:48:05 EDT by Ana Colindres
== END 2019-04-02 22:23 | disposition home or self-care (01) ==
LOC: M ED 18:00 → EDBD 18:00 → M ED 22:23
DX: R05 Cough (principal); I50.9 Heart failure, unspecified; I10 Essential (primary) hypertension; E78.5 Hyperlipidemia, unspecified; Z86.73 Personal history of transient ischemic attack (TIA), and cerebral infarction without residual deficits; K21.9 Gastro-esophageal reflux disease without esophagitis; N18.3 Chronic kidney disease, stage 3 (moderate); F03.91 Unspecified dementia, unspecified severity, with behavioral disturbance; M48.00 Spinal stenosis, site unspecified; Z79.82 Long term (current) use of aspirin; Z79.899 Other long term (current) drug therapy; Z88.8 Allergy status to other drugs, medicaments and biological substances
CPT/HCPCS: 36415; 71045; 80048; 82550; 82553; 83605; 83880; 84443; 84484; 85025; 87040; 93005; 93041; 94760; 96374; 99285; J1100

== ENCOUNTER 2019-04-04 19:31 | Inpatient (IN) | payer MEDICARE ==
[~2019-04-04] VITALS: Ht 152.4 cm; Wt 85.6 kg
[~2019-04-04 19:31] MED LIST changes: +ALBU83IN NEB; +DONE10TA90 PO; +MECL1CHW PO; +MIRA3350 PO; +MOM30SS PO; +ONDA4TAB5 PO; +PHARMACY COMMENT; +VITA200012 PO
--- NOTE | 2019-04-04 20:39 | REPVR ---
EXAM: CT Head Without Contrast EXAM DATE/TIME: 04/04/2019 7:47 PM CLINICAL HISTORY: 89 years old, female; Injury or trauma; Fall; Initial encounter; Blunt trauma (contusions or hematomas); Additional info: Head injury, on blood thinners TECHNIQUE: Imaging protocol: Axial computed tomography images of the head without contrast. Radiation optimization: All CT scans at this facility use at least one of these dose optimization techniques: automated exposure control; mA and/or kV adjustment per patient size (includes targeted exams where dose is matched to clinical indication); or iterative reconstruction. COMPARISON: CT Head without contrast 08/01/2018 9:15 AM FINDINGS: Brain: Large focus of macrocystic encephalomalacia right posterior parietal lobe within the posterior MCA territory. There is parenchymal volume loss. White matter changes are demonstrated in the subcortical, centrum semiovale and periventricular white matter consistent with small vessel white matter angiopathic gliosis. White matter infarct anterior frontal lobe on the right. Ventricles: Normal. No ventriculomegaly. Bones/joints: Hyperostosis frontalis interna. Otherwise unremarkable. No acute fracture. Sinuses: Visualized sinuses are unremarkable. No fluid levels. Mastoid air cells: Visualized mastoid air cells are well aerated. No mastoid effusion. Soft tissues: Unremarkable. IMPRESSION: 1. Large focus of macrocystic encephalomalacia right posterior parietal lobe within the posterior MCA territory. Findings stable. 2. There is parenchymal volume loss. White matter changes are demonstrated in the subcortical, centrum semiovale and periventricular white matter consistent with small vessel white matter angiopathic gliosis. 3. No acute findings. Electronically signed by: Boston Ng On 04/04/2019 20:39:12 PM
[2019-04-04] MEDS ORDERED: ACETAMINOPHEN TAB 650MG DOSE (2X325MG) PO ONE (20:45)
--- NOTE | 2019-04-04 20:57 | REPVR ---
EXAM: CT Cervical Spine Without Contrast EXAM DATE/TIME: 04/04/2019 8:42 PM CLINICAL HISTORY: 89 years old, female; Injury or trauma; Fall; Initial encounter; Blunt trauma; Additional info: Neck pain after a fall TECHNIQUE: Imaging protocol: Axial computed tomography images of the cervical spine without contrast. Coronal and sagittal reformatted images were created and reviewed. Radiation optimization: All CT scans at this facility use at least one of these dose optimization techniques: automated exposure control; mA and/or kV adjustment per patient size (includes targeted exams where dose is matched to clinical indication); or iterative reconstruction. COMPARISON: CT Spine,cervical w/o contrast 08/01/2018 9:15 AM FINDINGS: Vertebrae: Reversal of normal cervical lordosis. Slight anterolisthesis of C2 on C3, and mild to moderate retrolisthesis of C5 with respect to C4 and C6 likely degenerative. Clinical correlation to exclude soft tissue injury suggested. Degenerative changes of atlantoaxial joint. Discs/Spinal canal/Neural foramina: Degenerative spondylosis with disc space narrowing from C3-4 to C6-7 with intervertebral osteophytes. Moderate foraminal narrowing on the right at C2, severe foraminal stenosis on the right a mild foraminal stenosis on the left at C3, severe foraminal stenosis on the right at C4, moderate to severe bilateral foraminal stenosis at C5, severe foraminal stenosis on the left and moderate foraminal stenosis on the right at C6 secondary to uncinate joint hypertrophic changes. Multilevel disc osteophyte complexes without cord impingement. Other bones/joints: Osteoporosis. Soft tissues: Unremarkable. Lungs: Lung apices are normal. IMPRESSION: Slight anterolisthesis of C2 on C3, and mild to moderate retrolisthesis of C5 with respect to C4 and C6 likely degenerative. Clinical correlation to exclude soft tissue injury suggested. Degenerative spondylosis. Multilevel foraminal stenosis. No acute findings. Electronically signed by: Boston Ng On 04/04/2019 20:57:39 PM
[2019-04-04] MEDS ORDERED: NS 500 ML IV ONE (22:15)
[2019-04-04 22:33] LABS: BASO % 0.1 % (0.0-1.0); EOS % 0.1 % (0.0-3.0); HEMATOCRIT 40.5 % (36.0-47.0); HEMOGLOBIN 13.4 g/dl (12.0-15.5); LYMPH # 3.2 10^3/uL (1.5-4.5); LYMPH % 22.6 % (24.0-44.0); MEAN CORPUSCULAR HGB CONC 33.1 g/dl (32.0-36.5); MEAN CORPUSCULAR VOLUME 96.7 fl (80.0-96.0); MONO # 1.1 10^3/uL (0.0-0.8); MONO % 7.3 % (0.0-5.0); NEUTROPHILS # 9.9 10^3/uL (1.8-7.7); NEUTROPHILS % 69.4 % (36.0-66.0); PLATELET COUNT, AUTOMATED 162 10^3/uL (150-450); RED BLOOD COUNT 4.19 10^6/uL (4.00-5.40); WHITE BLOOD COUNT 14.3 10^3/uL (4.0-10.0)
[2019-04-04 22:46] LABS: INR 0.92; PROTHROMBIN TIME 12.4 SECONDS (12.1-14.4)
[2019-04-04 22:47] LABS: PARTIAL THROMBOPLASTIN TIME 22.3 SECONDS (25.4-37.6)
[2019-04-04 23:06] LABS: ALBUMIN 3.2 GM/DL (3.2-5.2); ALT/SGPT 15 U/L (12-78); BILIRUBIN,DIRECT < 0.1 MG/DL (0.0-0.2); BILIRUBIN,TOTAL 0.3 MG/DL (0.2-1.0); BLOOD UREA NITROGEN 26 MG/DL (7-18); CALCIUM LEVEL 8.6 MG/DL (8.8-10.2); CARBON DIOXIDE LEVEL 28 MEQ/L (21-32); CHLORIDE LEVEL 103 MEQ/L (98-107); CPK CREATINE PHOSPHOKINASE 180 U/L (26-192); CREATININE FOR GFR 1.49 MG/DL (0.55-1.30); GLOMERULAR FILTRATION RATE 35.1 (>32); GLUCOSE, FASTING 217 MG/DL (70-100); LIPASE 220 U/L (73-393); MB/CK RELATIVE INDEX 0.89 (< OR =4); POTASSIUM SERUM 4.1 MEQ/L (3.5-5.1); SODIUM LEVEL 140 MEQ/L (136-145); TOTAL PROTEIN 6.7 GM/DL (6.4-8.2); TROPONIN I < 0.02 NG/ML (< 0.10)
[2019-04-04] MEDS ORDERED: PRED20TA PO (23:32)
[2019-04-05] MEDS ORDERED: MOM 30ML SUSPENSION UDC PO PRN
[2019-04-05] MEDS ORDERED: ONDANSETRON 4 MG TAB (S0181) PO PRN
[2019-04-05] MEDS ORDERED: MAALOX 30 ML SUSP *UDC PO PRN
--- NOTE | 2019-04-05 00:31 | ECGEPIP ---
Stationary ECG Study [facility] - ED Test Date: 2019-04-04 Pat Name: NI BAILON Department: Room: - Gender: F Clinical Nurse: [place] : 1930 Requested By: BENJAMIN Lombardo Order Number: [id number] Reading MD: Vince Jackson Measurements Intervals [place] Rate: 78 P: 33 IN: 112 QRS: 47 QRSD: 121 T: 60 QT: 390 QTc: 447 Interpretive Statements SINUS RHYTHM WITH SHORT IN INTERVAL Intraventricular conduction delay INFERIOR MYOCARDIAL INFARCTION, PROBABLY OLD WITH POSTERIOR EXTENSION Electronically Signed On 04-05-2019 0:31:16 EDT by Vince Jackson
[2019-04-05 00:40] VITALS: BP 151/73
--- NOTE | 2019-04-05 00:44 | HPEPDOC ---
General Date of Admission April 04, 2019 at 23:49 Chief Complaint The patient is a 89-year-old female admitted with a reason for visit of Ian robles. Source: Patient, RN/, Old records History of Present Illness Ms. Infante is an 89 years old woman who lives in an assisted living and uses walker to ambulate. Pt states that she was very weak on her legs yesterday and fell to the ground. Denies any significant trauma, but she reportedly hit on her head. A head CT in the Er was unremarkable. Pt denies chest pain, palpitation dizziness or syncope. Routine labs in the ER is unremarkable except for mild leucocytosis of 14K, with no other indication of infection. CXR and UA are normal. Pt denies cough, fever, diarrhea or dysuria. Pt appeared very weak in the Er. When she was going to bathroom, she needed assistance. Admission was requested because pt cannot return to assisted living. Home Medications Scheduled Albuterol Sulf (Albuterol Sulfate) 2.5 Mg/3 Ml Vial.neb, 1 DOSE NEB QID, (Reported) Aspirin (Aspirin EC) 81 Mg Tab, 81 MG PO DAILY, (Reported) Atorvastatin Calcium (Lipitor) 80 Mg Tab, 80 MG PO QHS, (Reported) Cholecalciferol (Vitamin D3) (D3-2000) 2,000 Unit Capsule, 2,000 UNIT PO DAILY, (Reported) Clopidogrel Bisulfate (Plavix) 75 Mg Tab, 75 MG PO DAILY, (Reported) Donepezil HCl (Donepezil HCl) 10 Mg Tablet, 10 MG PO QHS, (Reported) Duloxetine Hcl (Cymbalta) 60 Mg Cap, 60 MG PO QHS, (Reported) Ferrous Sulfate (Ferrous Sulfate) 325 Mg Tab, 325 MG PO BID, (Reported) Hydrocortisone (Anusol-Hc) 2.5 % Cre, 1 DOSE SD BID, (Reported) Metoprolol Tartrate (Metoprolol Tartrate) 25 Mg Tab, 12.5 MG PO BID, (Reported) Pantoprazole Sodium (Pantoprazole Sodium) 40 Mg Tab, 40 MG PO DAILY, (Reported) Prednisone (Prednisone) 20 Mg Tablet, 40 MG PO DAILY, (Reported) Sucralfate (Carafate) 1 Gm Tab, 1 GM PO QID, (Reported) Scheduled PRN Acetaminophen (Acetaminophen) 325 Mg Tab, 650 MG PO Q6H PRN for PAIN, (Reported) Meclizine Hcl (Meclizine HCl) 25 Mg Tab.chew, 25 MG PO QID PRN for DIZZINESS, (Reported) Milk Of Magnesia (Milk of Magnesia) 2,400 Mg/10 Ml Oral.susp, 10 ML PO DAILY PRN for CONSTIPATION, (Reported) Ondansetron HCl (Ondansetron HCl) 4 Mg Tablet, 4 MG PO Q4H PRN for NAUSEA OR VOMITING, (Reported) Polyethylene Glycol 3350 (Miralax) 119 Gm Powder, 17 GM PO DAILY PRN for CONSTIPATION, (Reported) Allergies Coded Allergies: bupropion (Verified Adverse Reaction, Intermediate, INSTALLATION DRAFTER, 04/02/19) carbamazepine (Verified Adverse Reaction, Mild, GI, 04/02/19) citalopram (Verified Adverse Reaction, Mild, DROWSY, 04/02/19) lisinopril (Verified Adverse Reaction, Mild, INSTALLATION DRAFTER, 04/02/19) venlafaxine (Verified Adverse Reaction, Mild, DROWSY, 04/02/19) nefazodone (Verified Adverse Reaction, Unknown, EVERYTHING(??), 04/02/19) Past Medical History Medical History Stroke, CAD, Decompensated CHF, Dementia, Severe aortic stenosis, mitral valve stenosis, hypertension, hyperlipidemia, gastroesophageal reflux disease, arthritis, stage III chronic kidney disease, chronic depression, spinal stenosis, and bowel incontinence Surgical History lumbar laminectomy, cholecystectomy, hysterectomy, abdominal aortic aneurysm (AAA) repair. Family History Significant Family History: No pertinent family hx Social History * Smoker: Denies Alcohol: Denies Drugs: denies Lives in assisted living A-FIB/[facility] A-FIB History Current/History of A-Fib/PAF?: No Review of Systems Constitutional: Denies: Chills, Fever Eyes: Denies: Pain ENT: Denies: Head Aches, Ear Pain Skin: Denies: Rash, Lesions Pulmonary: Denies: Dyspnea, Cough Cardiovascular: Reports: Edema (mild chronic edema of legs); Denies: Chest Pain, Palpitations Gastrointestinal: Denies: Nausea, Vomiting, Abdominal Pain, Diarrhea Genitourinary: Denies: Dysuria Musculoskeletal: Denies: Neck Pain, Back Pain Neurological: Reports: Weakness; Denies: Confusion Psych: Reports: Mood Normal; Denies: Anxiety Physical Examination General Exam: Positive: Alert, Cooperative, No Acute Distress Eye Exam: Positive: PERRLA ENT Exam: Positive: Atraumatic Neck Exam: Positive: Supple; Negative: JVD Chest Exam: Positive: Clear to auscultation, Normal air movement Heart Exam: Positive: Rate Normal, Irregular Rhythm Abdomen Exam: Positive: Normal bowel sounds, Soft; Negative: Tenderness Extremity Exam: Positive: Edema (mild chronic edema b/l), Normal pulses Skin Exam: Negative: Rash, Breakdown Neuro Exam: Positive: Other (no focal deficits; legs are weak b/l) Psych Exam: Positive: Mental status NL, Mood NL Vital Signs Vital Signs Date Time Temp Pulse Resp B/P (MAP) Pulse Ox O2 Delivery O2 Flow Rate FiO2 04/05/19 00:00 97.2 80 18 168/81 (110) 98 Room Air Laboratory Data Labs 24H Laboratory Tests 2 04/04/19 22:28: Immature Granulocyte % (Auto) 0.5, White Blood Count 14.3H, Red Blood Count 4.19, Hemoglobin 13.4, Hematocrit 40.5, Mean Corpuscular Volume 96.7H, Mean Corpuscular Hemoglobin 32.0, Mean Corpuscular Hemoglobin Concent 33.1, Red Cell Distribution Width 13.1, Platelet Count 162, Neutrophils (%) (Auto) 69.4H, Lymphocytes (%) (Auto) 22.6L, Monocytes (%) (Auto) 7.3H, Eosinophils (%) (Auto) 0.1, Basophils (%) (Auto) 0.1, Neutrophils # (Auto) 9.9H, Lymphocytes # (Auto) 3.2, Monocytes # (Auto) 1.1H, Eosinophils # (Auto) 0.0, Basophils # (Auto) 0.0, Nucleated Red Blood Cells % (auto) 0.0, Prothrombin Time 12.4, Prothromb Time International Ratio 0.92, Activated Partial Thromboplast Time 22.3L, Anion Gap 9, Glomerular Filtration Rate 35.1, Calcium Level 8.6L, Aspartate Amino Transf (AST/SGOT) 12, Alanine Aminotransferase (ALT/SGPT) 15, Alkaline Phosphatase 105, Total Bilirubin 0.3, Direct Bilirubin < 0.1, Total Creatine Kinase 180, Creatine Kinase MB 2.0, Creatine Kinase MB Relative Index 0.89, Troponin I < 0.02, Total Protein 6.7, Albumin 3.2, Albumin/Globulin Ratio 0.91L, Lipase 220 04/04/19 23:34: Urine Color YELLOW, Urine Appearance CLEAR, Urine pH 5.0, Urine Specific [place] 1.009, Urine Protein NEGATIVE, Urine Glucose (UA) NEGATIVE, Urine Ketones NEGATIVE, Urine Blood NEGATIVE, Urine Nitrite NEGATIVE, Urine Bilirubin NEGATIVE, Urine Urobilinogen 0.2, Urine Leukocyte Esterase NEGATIVE, Urine WBC (Auto) 1, Urine RBC (Auto) 0, Urine Hyaline Casts (Auto) 0, Urine Bacteria (Auto) NEGATIVE, Urine Squamous Epithelial Cells 0, Urine Sperm (Auto) CBC/BMP Laboratory Tests 04/04/19 22:28 Red Blood Count 4.19, Mean Corpuscular Volume 96.7 H, Mean Corpuscular Hemoglobin 32.0, Mean Corpuscular Hemoglobin Concent 33.1, Red Cell Distribution Width 13.1, Neutrophils (%) (Auto) 69.4 H, Lymphocytes (%) (Auto) 22.6 L, Monocytes (%) (Auto) 7.3 H, Eosinophils (%) (Auto) 0.1, Basophils (%) (Auto) 0.1, Neutrophils # (Auto) 9.9 H, Lymphocytes # (Auto) 3.2, Monocytes # (Auto) 1.1 H, Eosinophils # (Auto) 0.0, Basophils # (Auto) 0.0 Assessment/Plan Bilateral Leg Weakness and Fall without Injury - Keep overnight on observation - PT eval in the morning - Supportive care - Continue home meds for other chronic conditions Plan / VTE VTE Prophylaxis Ordered?: No (early ambulation, early discharge) VTE Exclusion Mechanical Proph: Low Risk for VTE VTE Exclusion Pharmacological: At Low Risk for VTE Plan Anticipated Discharge: Assisted Living SARAH AIKEN MD April 05, 2019 00:44
[2019-04-05] MEDS: ATORVASTATIN 20 MG TAB PO SCH ×2 (00:54→20:40)
[2019-04-05] MEDS: DONEPEZIL 5 MG TAB PO SCH ×2 (00:54→20:40)
[2019-04-05] MEDS: DULoxetine 30 MG CAP (CYMBALTA) PO SCH ×2 (00:55→20:41)
[2019-04-05 06:00] VITALS: BP 167/83
[2019-04-05 07:34] LABS: HEMATOCRIT 38.6 % (36.0-47.0); HEMOGLOBIN 12.8 g/dl (12.0-15.5); MEAN CORPUSCULAR HEMOGLOBIN 31.9 pg (27.0-33.0); MEAN CORPUSCULAR HGB CONC 33.2 g/dl (32.0-36.5); MEAN CORPUSCULAR VOLUME 96.3 fl (80.0-96.0); PLATELET COUNT, AUTOMATED 143 10^3/uL (150-450); RED BLOOD COUNT 4.01 10^6/uL (4.00-5.40); WHITE BLOOD COUNT 10.5 10^3/uL (4.0-10.0)
[2019-04-05 07:54] LABS: CALCIUM LEVEL 8.9 MG/DL (8.8-10.2); CREATININE FOR GFR 1.41 MG/DL (0.55-1.30); GLOMERULAR FILTRATION RATE 37.4 (>32); POTASSIUM SERUM 3.8 MEQ/L (3.5-5.1)
[2019-04-05] MEDS: ASPIRIN 81 MG ENTERIC TAB PO SCH (08:59)
[2019-04-05] MEDS: PANTOPRAZOLE 40MG TAB (PROTONIX) PO SCH (08:59)
[2019-04-05] MEDS: METOPROLOL TART 12.5 MG PER 1/2 TAB PO SCH ×2 (09:00→20:41)
[2019-04-05] MEDS: FERROUS SULFATE 325MG TAB PO SCH ×2 (09:00→20:40)
[2019-04-05] MEDS: SUCRALFATE 1 GM TAB PO SCH ×4 (09:00→20:40)
[2019-04-05] MEDS: CLOPIDOGREL 75 MG TAB PO SCH (09:00)
--- NOTE | 2019-04-05 09:01 | IPNPDOC ---
Subjective Date Seen The patient was seen on 04/05/19. Subjective Chief Complaint/HPI Pt this morning is without new concerns. She states that her legs hurt all the time and she sometimes feels weak, but yesterday and today she has really felt weak and last night she fell. General: Denies: Fatigue Constitutional: Denies: Chills, Fever Pulmonary: Denies: Dyspnea, Cough Cardiovascular: Denies: Chest Pain, Palpitations Gastrointestinal: Denies: Nausea, Vomiting Neurological: Reports: Weakness Psych: Reports: Mood Normal Objective Physical Examination General Exam: Positive: Alert, Cooperative, No Acute Distress Neck Exam: Positive: Supple; Negative: JVD Chest Exam: Positive: Clear to auscultation, Normal air movement Heart Exam: Positive: Rate Normal, Irregular Rhythm Abdomen Exam: Positive: Normal bowel sounds, Soft; Negative: Tenderness Extremity Exam: Positive: Edema (mild chronic edema b/l), Normal pulses Skin Exam: Negative: Rash, Breakdown Psych Exam: Positive: Mental status NL, Mood NL A-FIB/[facility] A-FIB History Current/History of A-Fib/PAF?: No Assessment /Plan Assessment 04/05 -- Pt seen, agree with below. She denied any complaints to me except leg weakness and arthritic discomfort. Does not appear to be acutely ill. -- CDT Problems (1) Weakness Status: Acute Discussed With: Patient Problem Specific Plan: Monitor Clinically, Repeat Labs Problem Text: resident at [facility], PT ordered, coordinate d/c with recommendations from PT. Pt medically safe for d/c at this time, there appears to be no acute sequelae assoc with her fall. (2) Fall Status: Acute Problem Text: Neg CT head, neg Neuro exam. 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 Status: Chronic Problem Specific Plan: Monitor Clinically (6) CKD (chronic kidney disease) stage 3, GFR 30-59 ml/min Status: Chronic Problem Specific Plan: Monitor Clinically Plan/VTE VTE Prophylaxis Ordered?: Yes Plan Anticipated Discharge: Assisted Living VS, I&O, 24H, Fishbone Vital Signs/I&O Vital Signs Date Time Temp Pulse Resp B/P (MAP) Pulse Ox O2 Delivery O2 Flow Rate FiO2 04/05/19 06:00 97.3 97 20 167/83 (111) 96 04/05/19 00:00 Room Air I&O- Last 24 Hours up to 6 AM 04/05/19 06:00 Intake Total 120 ml Output Total 400 ml Balance -280 ml Laboratory Data 24H LABS Laboratory Tests 2 04/04/19 22:28: Immature Granulocyte % (Auto) 0.5, White Blood Count 14.3H, Red Blood Count 4.19, Hemoglobin 13.4, Hematocrit 40.5, Mean Corpuscular Volume 96.7H, Mean Corpuscular Hemoglobin 32.0, Mean Corpuscular Hemoglobin Concent 33.1, Red Cell Distribution Width 13.1, Platelet Count 162, Neutrophils (%) (Auto) 69.4H, Lymphocytes (%) (Auto) 22.6L, Monocytes (%) (Auto) 7.3H, Eosinophils (%) (Auto) 0.1, Basophils (%) (Auto) 0.1, Neutrophils # (Auto) 9.9H, Lymphocytes # (Auto) 3.2, Monocytes # (Auto) 1.1H, Eosinophils # (Auto) 0.0, Basophils # (Auto) 0.0, Nucleated Red Blood Cells % (auto) 0.0, Prothrombin Time 12.4, Prothromb Time International Ratio 0.92, Activated Partial Thromboplast Time 22.3L, Anion Gap 9, Glomerular Filtration Rate 35.1, Calcium Level 8.6L, Aspartate Amino Transf (AST/SGOT) 12, Alanine Aminotransferase (ALT/SGPT) 15, Alkaline Phosphatase 105, Total Bilirubin 0.3, Direct Bilirubin < 0.1, Total Creatine Kinase 180, Creatine Kinase MB 2.0, Creatine Kinase MB Relative Index 0.89, Troponin I < 0.02, Total Protein 6.7, Albumin 3.2, Albumin/Globulin Ratio 0.91L, Lipase 220 04/04/19 23:34: Urine Color YELLOW, Urine Appearance CLEAR, Urine pH 5.0, Urine Specific [place] 1.009, Urine Protein NEGATIVE, Urine Glucose (UA) NEGATIVE, Urine Ketones NEGATIVE, Urine Blood NEGATIVE, Urine Nitrite NEGATIVE, Urine Bilirubin NEGATIVE, Urine Urobilinogen 0.2, Urine Leukocyte Esterase NEGATIVE, Urine WBC (Auto) 1, Urine RBC (Auto) 0, Urine Hyaline Casts (Auto) 0, Urine Bacteria (Auto) NEGATIVE, Urine Squamous Epithelial Cells 0, Urine Sperm (Auto) 5/20/19 07:15: Nucleated Red Blood Cells % (auto) 0.0, Anion Gap 6L, Glomerular Filtration Rate 37.4, Calcium Level 8.9, Blood Urea Nitrogen 22H, Creatinine 1.41H, Sodium Level 145, Potassium Level 3.8, Chloride Level 109H, Carbon Dioxide Level 30 CBC/BMP Laboratory Tests 04/04/19 22:28 Red Blood Count 4.19, Mean Corpuscular Volume 96.7 H, Mean Corpuscular Hemoglobin 32.0, Mean Corpuscular Hemoglobin Concent 33.1, Red Cell Distribution Width 13.1, Neutrophils (%) (Auto) 69.4 H, Lymphocytes (%) (Auto) 22.6 L, Monocytes (%) (Auto) 7.3 H, Eosinophils (%) (Auto) 0.1, Basophils (%) (Auto) 0.1, Neutrophils # (Auto) 9.9 H, Lymphocytes # (Auto) 3.2, Monocytes # (Auto) 1.1 H, Eosinophils # (Auto) 0.0, Basophils # (Auto) 0.0 04/05/19 07:15 Red Blood Count 4.01, Mean Corpuscular Volume 96.3 H, Mean Corpuscular Hemoglobin 31.9, Mean Corpuscular Hemoglobin Concent 33.2, Red Cell Distribution Width 13.0, Calcium Level 8.9 ANDERSON TELLEZ PA-C April 05, 2019 09:01 JARED DOHERTY DO April 05, 2019 17:41
--- NOTE | 2019-04-05 09:02 | REP ---
CHEST, TWO VIEWS: Two views of the chest were performed and compared to prior study of 03/03/2017. There is no acute infiltrate. Heart is not enlarged. Mediastinal silhouette is unchanged with mild calcification and tortuosity of the thoracic aorta. There are degenerative changes of the spine. Aortic valve stent is noted. There is slight elevation of the left hemidiaphragm. There are degenerative changes of the spine. IMPRESSION: No acute infiltrate. Electronically Signed by Calvin Guillen MD 04/05/2019 06:38 P
[2019-04-05 14:00] VITALS: BP 169/74
[2019-04-05] MEDS: ACETAMINOPHEN TAB 650MG DOSE (2X325MG) PO PRN (15:00)
[2019-04-05] MEDS ORDERED: ANALGESIC BALM CRM 120 GM TOP PRN (19:15)
[2019-04-05 22:00] VITALS: BP 138/56
[2019-04-06 06:00] VITALS: BP 132/80
--- NOTE | 2019-04-06 08:20 | IPN ---
DATE: 04/06/2019 Olya is seen on [facility]. She was admitted after a fall for reportedly generalized weakness. She is assisted living and uses a walker for ambulation. Of note is that she has been refusing occupational therapy. It was discontinued because she was refusing to work with them as an outpatient. In any case, she said her legs were weak. She fell to the ground. She has some bruises on her arms. I have been following Olya for over 25 years. She has had significant decline in function over the last few years. She has spinal stenosis, which has lead to progressive weakness of her legs. She is not a surgical candidate for this. I think that the spinal stenosis has recently definitely affected her ability to ambulate. Her past medical history shows she is a DO NOT RESUSCITATE, DO NOT INTUBATE. She had a medical orders for life-sustaining treatment (MOLST) form from June 2018 that was DO NOT RESUSCITATE, DO NOT INTUBATE. No tube feedings. Trial or IV fluids. She has hypertension, severe aortic stenosis, undergoing transcatheter aortic valve replacement (TAVR) procedure April 2018. Had embolic stroke after discharge from that procedure. Echocardiogram April 2018 showed ejection fraction of 55%. Aortic valve functioned well. No shunt on bubble study. She has a history of stage III chronic kidney disease, chronic depression, vitamin D deficiency, trochanteric bursitis for which she has had injections by Dr. Leo Win. History of hiatal hernia on gastroesophageal reflux disease, and barium swallow September 2013. Benign positional vertigo with negative videonystagmography (VNG) May 2014. Recurrent severe vertigo requiring hospitalization in August 2018. She had a stroke February 2018 with right upper extremity weakness. Left parietal stroke on MRI, embolic stroke after TAVR April 2018 and was admitted to [facility]. Had a subacute right parietal stroke on CT scan. Carotid ultrasound showed 50% left internal carotid artery stenosis, 5-65% right internal carotid artery stenosis. She has dementia and was started on Aricept in September 2017. Dose increased December 2018. She also has a history of prediabetes in Meniere's disease. SURGICAL HISTORY: Cholecystectomy. Appendectomy. Hysterectomy. Bilateral salpingo-oophorectomy (BSO). Splenic artery aneurysm repair. Colonoscopy September 2013. Esophagogastroduodenoscopy (EGD) with colonoscopy done December 2009. Cardiac catheterization March 2018 followed by TAVR procedure April 2018. PHYSICAL EXAMINATION: She is resting comfortably in bed. She is in no distress. She recognizes me upon entering the room. HEENT: Unremarkable. LUNGS: Clear. HEART: Regular rhythm. 1/6 systolic ejection murmur. ABDOMEN: Soft. Nontender. No masses. EXTREMITIES: She has some ecchymoses on her upper arms. She fully extends or wrist and left forearm. Lower extremities: Legs are weak but symmetric. They are 4+/5. Trace peripheral edema, which is chronic. LABS: White count 10.5, hemoglobin 12.8, platelets 143. Sodium 145, potassium 3.8, BUN 22, creatinine 1.41, glucose 89. IMPRESSION: 1. Lower extremity weakness: Suspect this is related to her spinal stenosis. She is getting some physical therapy. If she passes, then she will go back to assisted living. My opinion is that her decline has been progressive and that if she does end up in the long-term after this admission, it is in the near future. Also note that she did not cooperate with therapy at assisted living and they stopped working with her. 2. Kidney disease: Stable. 3. Hypertension: Stable. 4. Depression: Stable. 5. Dementia: Stable.
[2019-04-06] MEDS: PANTOPRAZOLE 40MG TAB (PROTONIX) PO SCH (09:44)
[2019-04-06] MEDS: SUCRALFATE 1 GM TAB PO SCH ×4 (09:44→21:36)
[2019-04-06] MEDS: FERROUS SULFATE 325MG TAB PO SCH ×2 (09:44→21:36)
[2019-04-06] MEDS: ASPIRIN 81 MG ENTERIC TAB PO SCH (09:44)
[2019-04-06] MEDS: CLOPIDOGREL 75 MG TAB PO SCH (09:44)
[2019-04-06] MEDS: METOPROLOL TART 12.5 MG PER 1/2 TAB PO SCH ×2 (09:45→21:36)
[2019-04-06] MEDS: ACETAMINOPHEN TAB 650MG DOSE (2X325MG) PO PRN (09:49)
[2019-04-06 14:00] VITALS: BP 157/75
[2019-04-06] MEDS: ATORVASTATIN 20 MG TAB PO SCH (21:35)
[2019-04-06] MEDS: DONEPEZIL 5 MG TAB PO SCH (21:36)
[2019-04-06] MEDS: DULoxetine 30 MG CAP (CYMBALTA) PO SCH (21:36)
[2019-04-06 22:00] VITALS: BP 124/56
[2019-04-07 06:00] VITALS: BP 162/69
--- NOTE | 2019-04-07 08:38 | IPN ---
DATE OF SERVICE: 04/07/2019 Olya is seen on [facility]. She is stable. Her blood pressure is 124/56. She has no chest pain or shortness of breath. She says she is progressing in physical therapy. PHYSICAL EXAMINATION: VITAL SIGNS: Are as above. LUNGS: Clear. HEART: Regular rate and rhythm. ABDOMEN: Soft. Nontender. LOWER EXTREMITIES: Are weak as before. PLAN: Continue physical therapy. Then, she is going to [facility]U next week.
[2019-04-07] MEDS: SUCRALFATE 1 GM TAB PO SCH ×4 (09:59→22:36)
[2019-04-07] MEDS: ASPIRIN 81 MG ENTERIC TAB PO SCH (09:59)
[2019-04-07] MEDS: PANTOPRAZOLE 40MG TAB (PROTONIX) PO SCH (09:59)
[2019-04-07] MEDS: FERROUS SULFATE 325MG TAB PO SCH ×2 (09:59→22:36)
[2019-04-07] MEDS: METOPROLOL TART 12.5 MG PER 1/2 TAB PO SCH ×2 (10:00→22:35)
[2019-04-07] MEDS: CLOPIDOGREL 75 MG TAB PO SCH (10:00)
[2019-04-07] MEDS: ACETAMINOPHEN TAB 650MG DOSE (2X325MG) PO PRN (10:52)
[2019-04-07 14:00] VITALS: BP 157/73
[2019-04-07 22:00] VITALS: BP 147/74
[2019-04-07] MEDS: DULoxetine 30 MG CAP (CYMBALTA) PO SCH (22:35)
[2019-04-07] MEDS: ATORVASTATIN 20 MG TAB PO SCH (22:36)
[2019-04-07] MEDS: DONEPEZIL 5 MG TAB PO SCH (22:36)
[2019-04-08 06:00] VITALS: BP 151/56
[2019-04-08] MEDS: CLOPIDOGREL 75 MG TAB PO SCH (08:15)
[2019-04-08] MEDS: FERROUS SULFATE 325MG TAB PO SCH ×2 (08:15→20:29)
[2019-04-08] MEDS: ASPIRIN 81 MG ENTERIC TAB PO SCH (08:15)
[2019-04-08] MEDS: ACETAMINOPHEN TAB 650MG DOSE (2X325MG) PO PRN ×2 (08:15→17:36)
[2019-04-08] MEDS: PANTOPRAZOLE 40MG TAB (PROTONIX) PO SCH (08:15)
[2019-04-08] MEDS: SUCRALFATE 1 GM TAB PO SCH ×4 (08:15→20:29)
[2019-04-08] MEDS: METOPROLOL TART 12.5 MG PER 1/2 TAB PO SCH ×2 (08:16→20:28)
--- NOTE | 2019-04-08 09:41 | IPNPDOC ---
Subjective Date Seen The patient was seen on 04/08/19. Subjective Chief Complaint/HPI Pt this morning without new concerns. General: Denies: Fatigue Constitutional: Denies: Chills, Fever Pulmonary: Reports: Dyspnea (chr), Cough (chr) Gastrointestinal: Denies: Nausea, Vomiting, Diarrhea, Constipation Neurological: Denies: Weakness Psych: Reports: Mood Normal Objective Physical Examination General Exam: Positive: Alert, Cooperative, No Acute Distress Neck Exam: Positive: Supple; Negative: JVD Chest Exam: Positive: Clear to auscultation, Normal air movement Heart Exam: Positive: Rate Normal, Irregular Rhythm Abdomen Exam: Positive: Normal bowel sounds, Soft; Negative: Tenderness Extremity Exam: Positive: Edema (mild chronic edema b/l), Normal pulses Skin Exam: Negative: Rash, Breakdown Psych Exam: Positive: Mental status NL, Mood NL A-FIB/[facility] A-FIB History Current/History of A-Fib/PAF?: No Assessment /Plan Problems (1) Weakness Status: Acute Discussed With: Patient Problem Specific Plan: Monitor Clinically, Repeat Labs Problem Text: 04/08 anticipate d/c to [facility] tomorrow. 04/05 resident at [facility], PT ordered, coordinate d/c with recommendations from PT. Pt medically safe for d/c at this time, there appears to be no acute sequelae assoc with her fall. (2) Fall Status: Acute Problem Text: Neg CT head, neg Neuro exam. 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 Status: Chronic Problem Specific Plan: Monitor Clinically (6) CKD (chronic kidney disease) stage 3, GFR 30-59 ml/min Status: Chronic Problem Specific Plan: Monitor Clinically Plan/VTE VTE Prophylaxis Ordered?: Yes Plan Anticipated Discharge: Assisted Living VS, I&O, 24H, Fishbone Vital Signs/I&O Vital Signs Date Time Temp Pulse Resp B/P (MAP) Pulse Ox O2 Delivery O2 Flow Rate FiO2 04/08/19 08:16 75 151/56 04/08/19 06:00 98.2 18 95 04/05/19 00:00 Room Air I&O- Last 24 Hours up to 6 AM 04/08/19 06:00 Intake Total 1200 ml Output Total 1550 ml Balance -350 ml ANDERSON TELLEZ PA-C April 08, 2019 09:41
[2019-04-08 14:00] VITALS: BP 147/78
[2019-04-08] MEDS: ATORVASTATIN 20 MG TAB PO SCH (20:27)
[2019-04-08] MEDS: DONEPEZIL 5 MG TAB PO SCH (20:29)
[2019-04-08] MEDS: DULoxetine 30 MG CAP (CYMBALTA) PO SCH (20:29)
[2019-04-08 22:00] VITALS: BP 124/57
[2019-04-09 06:00] VITALS: BP 120/57
[2019-04-09 10:34] VITALS: BP 122/62
[2019-04-09] MEDS: FERROUS SULFATE 325MG TAB PO SCH (10:34)
[2019-04-09] MEDS: METOPROLOL TART 12.5 MG PER 1/2 TAB PO SCH (10:34)
[2019-04-09] MEDS: PANTOPRAZOLE 40MG TAB (PROTONIX) PO SCH (10:34)
[2019-04-09] MEDS: CLOPIDOGREL 75 MG TAB PO SCH (10:35)
[2019-04-09] MEDS: SUCRALFATE 1 GM TAB PO SCH (10:35)
[2019-04-09] MEDS: ASPIRIN 81 MG ENTERIC TAB PO SCH (10:35)
--- NOTE | 2019-04-09 23:09 | DSES ---
DATE OF ADMISSION: 04/06/2019 DATE OF ANTICIPATED DISCHARGE: 04/09/2019 PRIMARY CARE PROVIDER: Dr. German Chavis HISTORY: This is an 89-year-old female, resident of [facility] living who suffered a fall in the assisted living setting. She was transferred to [facility] [place] [facility] for evaluation. Upon her evaluation, her neurologic evaluation and CT of the head were benign, although she was quite weak, and therefore it was recommended that she be admitted to the hospital for physical therapy. During her hospitalization, she has begrudgingly participated with physical therapy (PT). Evaluations have ultimately recommended that she return not to assisted living but to short-term rehabilitation and then decide whether her placement should be assisted living or [facility]. They are anticipating bed availability of April 09 for her. DIAGNOSES: 1. Fall. 2. Weakness. 3. Hyperlipidemia. 4. Hypertension. 5. Chronic diastolic heart failure. 6. Chronic kidney disease, stage III. DISCHARGE MEDICATIONS: - acetaminophen 650 mg every 6 hours as needed for pain - albuterol nebulizer four times daily - aspirin 81 mg daily - Lipitor 80 mg daily - vitamin D3 at 2000 units by mouth daily - Plavix 75 mg by mouth daily - donepezil 10 mg by mouth at bedtime - Cymbalta 60 mg by mouth at bedtime - ferrous sulfate 325 mg by mouth twice a day - hydrocortisone - Anusol one dose per rectum twice daily as needed for hemorrhoids - meclizine 25 mg by mouth four times daily as needed for dizziness - metoprolol 12.5 mg by mouth twice a day - milk of magnesia 10 mL by mouth daily as needed for constipation - Zofran 4 mg by mouth every 4 hours as needed for nausea and vomiting - Protonix 40 mg daily - MiraLax 17 grams by mouth daily as needed for constipation - Carafate 1 gram by mouth four times daily DISCHARGE PLAN: Discharge to [facility]. Her activity should be as tolerated. Her diet should be no-added salt, low fat. ADDENDUM: Patient has remained medically stable. She will be discharged on 04/09/2019 to [facility] rehabilitation. Addendum dictated: Bettye Kwong PA-C, 04/09/2019 0955 Addendum transcribed: formerly [facility] 04/09/2019 1021 edited: 04/13/2019 0800 lance CORREA
== END 2019-04-09 11:40 | DRG 552 ==
LOC: M ED 19:31 → M ED INP 23:49 → M MS5PR 04-05 00:39 → OBSVTOIN 04-06 10:54
PROVIDERS: ADMIT Internal Medicine; ATTEND Family Medicine
DX: M48.00 Spinal stenosis, site unspecified (principal); I13.0 Hypertensive heart and chronic kidney disease with heart failure and stage 1 through stage 4 chronic kidney disease, or unspecified chronic kidney disease; I50.32 Chronic diastolic (congestive) heart failure; I25.10 Atherosclerotic heart disease of native coronary artery without angina pectoris; F03.90 Unspecified dementia, unspecified severity, without behavioral disturbance, psychotic disturbance, mood disturbance, and anxiety; E78.5 Hyperlipidemia, unspecified; K21.9 Gastro-esophageal reflux disease without esophagitis; F32.9 Major depressive disorder, single episode, unspecified; R15.9 Full incontinence of feces; Z66 Do not resuscitate; Z86.73 Personal history of transient ischemic attack (TIA), and cerebral infarction without residual deficits; Z79.82 Long term (current) use of aspirin; Z79.52 Long term (current) use of systemic steroids; Z79.899 Other long term (current) drug therapy; Z88.8 Allergy status to other drugs, medicaments and biological substances; Z95.2 Presence of prosthetic heart valve; E55.9 Vitamin D deficiency, unspecified; Z90.49 Acquired absence of other specified parts of digestive tract; R53.1 Weakness

== ENCOUNTER → 2019-06-22 | Outpatient (REF) ==
[2019-06-22 10:45] LABS: BASO % 0.4 % (0.0-1.0); EOS # 0.1 10^3/uL (0.0-0.50); EOS % 1.4 % (0.0-3.0); HEMATOCRIT 36.9 % (36.0-47.0); HEMOGLOBIN 12.1 g/dl (12.0-15.5); LYMPH # 1.4 10^3/uL (1.5-4.5); LYMPH % 19.5 % (24.0-44.0); MEAN CORPUSCULAR HEMOGLOBIN 30.9 pg (27.0-33.0); MEAN CORPUSCULAR HGB CONC 32.8 g/dl (32.0-36.5); MEAN CORPUSCULAR VOLUME 94.1 fl (80.0-96.0); MONO # 0.4 10^3/uL (0.0-0.8); NEUTROPHILS # 5.2 10^3/uL (1.8-7.7); NEUTROPHILS % 72.4 % (36.0-66.0); PLATELET COUNT, AUTOMATED 139 10^3/uL (150-450); RED BLOOD COUNT 3.92 10^6/uL (4.00-5.40); WHITE BLOOD COUNT 7.2 10^3/uL (4.0-10.0)
[2019-06-22 11:12] LABS: CALCIUM LEVEL 8.8 MG/DL (8.8-10.2); CREATININE FOR GFR 1.46 MG/DL (0.55-1.30); GLOMERULAR FILTRATION RATE 35.9 (>32); POTASSIUM SERUM 3.3 MEQ/L (3.5-5.1)
[2019-06-22 11:13] LABS: ALBUMIN 2.9 GM/DL (3.2-5.2); BILIRUBIN,TOTAL 0.4 MG/DL (0.2-1.0); CHOLESTEROL RISK RATIO 3.46 (<5); TOTAL PROTEIN 5.6 GM/DL (6.4-8.2)
[2019-06-22 11:20] LABS: TOTAL 25(OH) VITAMIN D 40.3 NG/ML (30.0-100.0)
== END ==
PROVIDERS: ATTEND Family Medicine
DX: Z79.899 Other long term (current) drug therapy (principal)

== ENCOUNTER → 2019-06-30 | Outpatient (REF) ==
[2019-06-30 15:19] LABS: HEMATOCRIT 42.2 % (36.0-47.0); HEMOGLOBIN 13.6 g/dl (12.0-15.5); MEAN CORPUSCULAR HEMOGLOBIN 31.7 pg (27.0-33.0); MEAN CORPUSCULAR HGB CONC 32.2 g/dl (32.0-36.5); MEAN CORPUSCULAR VOLUME 98.4 fl (80.0-96.0); PLATELET COUNT, AUTOMATED 172 10^3/uL (150-450); RED BLOOD COUNT 4.29 10^6/uL (4.00-5.40); WHITE BLOOD COUNT 7.9 10^3/uL (4.0-10.0)
[2019-06-30 16:16] LABS: CREATININE FOR GFR 1.59 MG/DL (0.55-1.30); GLOMERULAR FILTRATION RATE 32.5 (>32); POTASSIUM SERUM 4.1 MEQ/L (3.5-5.1)
== END ==
PROVIDERS: ATTEND Family Medicine
DX: R11.10 Vomiting, unspecified (principal)

== ENCOUNTER → 2019-08-23 | Outpatient (REF) | payer MEDICARE | PROVIDERS: ATTEND Physician Assistant | DX: R07.0 Pain in throat (principal) ==

== ENCOUNTER → 2019-10-25 | Outpatient (REF) | payer MEDICARE | PROVIDERS: ATTEND Family Medicine | DX: R05 Cough (principal) ==

== ENCOUNTER → 2019-12-23 | Outpatient (REF) | payer MEDICARE ==
[~2019-12-23] MED LIST changes: +ONDA-83 PO; -ONDA4TAB5 PO
[2019-12-23 11:10] LABS: BASO % 0.6 % (0.0-1.0); EOS # 0.1 10^3/uL (0.0-0.5); EOS % 1.2 % (0.0-3.0); HEMATOCRIT 42.9 % (36.0-47.0); HEMOGLOBIN 13.5 g/dl (12.0-15.5); LYMPH # 1.7 10^3/uL (1.5-5.0); LYMPH % 24.5 % (24.0-44.0); MEAN CORPUSCULAR HEMOGLOBIN 30.3 pg (27.0-33.0); MEAN CORPUSCULAR HGB CONC 31.5 g/dl (32.0-36.5); MEAN CORPUSCULAR VOLUME 96.4 fl (80.0-96.0); MONO # 0.4 10^3/uL (0.0-0.8); MONO % 5.3 % (0.0-5.0); NEUTROPHILS # 4.7 10^3/uL (1.5-8.5); NEUTROPHILS % 68.3 % (36.0-66.0); PLATELET COUNT, AUTOMATED 154 10^3/uL (150-450); RED BLOOD COUNT 4.45 10^6/uL (4.00-5.40); WHITE BLOOD COUNT 6.8 10^3/uL (4.0-10.0)
[2019-12-23 11:39] LABS: ALBUMIN 3.5 GM/DL (3.2-5.2); BILIRUBIN,TOTAL 0.5 MG/DL (0.2-1.0); CALCIUM LEVEL 9.4 MG/DL (8.8-10.2); CHOLESTEROL RISK RATIO 3.912 (<5); CREATININE FOR GFR 1.57 MG/DL (0.55-1.30); POTASSIUM SERUM 3.9 MEQ/L (3.5-5.1); TOTAL PROTEIN 6.9 GM/DL (6.4-8.2)
[2019-12-23 12:14] LABS: TOTAL 25(OH) VITAMIN D 44.4 NG/ML (30.0-100.0)
== END ==
PROVIDERS: ATTEND Family Medicine
DX: Z79.899 Other long term (current) drug therapy (principal)